=== PATIENT | female | born 1950 | race Caucasian/White ===

== ENCOUNTER 2017-02-25 19:24 | Inpatient (IN) | payer MEDICARE, BC ==
--- NOTE | 2017-02-25 20:56 | EDM.PDOC ---
ED HPI GENERAL MEDICAL PROBLEM - General Chief Complaint: Abdominal Pain Stated Complaint: ABDOMINAL PAIN Time Seen by Provider: 02/25/17 20:35 Source of Information: Reports: Patient History Limitations: Reports: No Limitations - History of Present Illness INITIAL COMMENTS - FREE TEXT/NARRATIVE: 66 yo female here with onset about supper time today of abdominal distention and pain. Had recent laparoscopic surgery for rectocoele repair at [facility]. Lives in [place]. Her primary care provider is in [place]. Had Candy-N-Y surgery per Dr. Diaz in the remote past. No fever. No nausea or vomiting. Sx's began when she tried to drink coffee and eat some bread when she got home from work. Was able to drink only about 1/2 cup of coffee and eat only a couple bites of lefse. Didn't have time for lunch today. Onset: Today Onset Date: 02/25/17 Onset Time: 17:30 Duration: Hour(s): Location: Reports: Abdomen, Generalized Quality: Reports: Dull Severity: Moderate Improves with: Reports: None Worsens with: Reports: Other (eating/drinking) Context: Reports: Other (recent laparoscopy, remote gastric by pass) Associated Symptoms: Reports: Other (deep breathing causes pain that radiates from the L lower lateral chest to the mid abdomen. ). Denies: Fever/Chills, Nausea/Vomiting, Shortness of Breath Treatments ADVANCE AGENT: Reports: Other (see below) (none) Abdominal Pain Score (Numeric/FACES): 6 - Related Data Allergies Allergy/AdvReac Type Severity Reaction Status Date / Time adhesive tape Allergy Rash Verified 02/25/17 20:40 amoxicillin [From Augmentin] Allergy Diarrhea Verified 02/25/17 20:40 ceftriaxone [From Rocephin] Allergy Syncope Verified 02/25/17 20:40 clavulanic acid Allergy Diarrhea Verified 02/25/17 20:40 [From Augmentin] levofloxacin [From Levaquin] Allergy Vomiting Verified 02/25/17 20:40 metoclopramide [From Reglan] Allergy Other Verified 02/25/17 20:40 Home Meds: Home Meds ALPRAZolam [Xanax] 0.5 mg PO BID PRN 02/25/17 [History] Acetylcysteine [Nac] 600 mg PO BID 02/25/17 [History] Albuterol [Ventolin HFA] 2 inh INH Q4H PRN 02/25/17 [History] Albuterol/Ipratropium [DuoNeb 3.0-0.5 MG/3 ML] 3 ml INH Q4H PRN 02/25/17 [ History] Calcitriol [Rocaltrol] 0.25 mcg PO DAILY 02/25/17 [History] Calcium Carbonate 260 mg PO TID 02/25/17 [History] Carboxymethyl/Gly/Poly80/Pf [Refresh Optive Advanced Drops] 1 drop EYELF Q4H [History] Cetirizine [ZyrTEC] 1 tab PO DAILY 02/25/17 [History] Cholecalciferol (Vitamin D3) [Vitamin D] 1,000 unit PO DAILY 02/25/17 [History] Erythromycin Base [Erythromycin 0.5% Ophth Oint] 1 applic OP BEDTIME 02/25/17 [ History] Estradiol [Estrace 0.01% Vaginal Crm] 2 gm VAG DAILY 02/25/17 [History] Fluconazole [Diflucan] 150 mg PO DAILY 02/25/17 [History] Fluticasone Propionate [Flonase] 1 - 2 spray INH DAILY 02/25/17 [History] Iron,Carbonyl/Ascorbic Acid [Vitron-C Tablet] 1 tab PO DAILY 02/25/17 [History] Lactobacillus Rhamnosus GG [Culturelle] 1 tab PO DAILY 02/25/17 [History] Loratadine [Claritin] 10 mg PO DAILY 02/25/17 [History] Mometasone/Formoterol [Dulera 200-5 MCG] 2 inh INH BID 02/25/17 [History] Nitrofurantoin Monohyd/M-Cryst [Macrobid 100 mg Capsule] 100 mg PO TID 02/25/17 [History] Phenazopyridine HCl [Pyridium] 200 mg PO TID PRN 02/25/17 [History] Polyethylene Glycol 3350 [MiraLAX] 17 gm PO BID 02/25/17 [History] Propranolol HCl [Inderal LA] 240 mg PO DAILY 02/25/17 [History] Rizatriptan Benzoate [Maxalt] 5 mg PO ASDIRECTED PRN 02/25/17 [History] Simvastatin [Zocor] 1 tab PO DAILY 02/25/17 [History] busPIRone [Buspar] 5 mg PO BID 02/25/17 [History] hydrOXYzine Pamoate [Vistaril] 100 mg PO BID PRN 02/25/17 [History] Past Medical History HEENT History: Reports: Impaired Vision, Otitis Media, Retinal Detachment Cardiovascular History: Reports: Hypertension Respiratory History: Reports: Asthma, Bronchitis, Recurrent Gastrointestinal History: Reports: Colon Polyp, Hemorrhoids Genitourinary History: Reports: Renal Calculus, Urinary Incontinence, UTI, Recurrent, Other (See Below) Other Genitourinary History: left kidney function at 40%, bladder surgery 1981 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: Musculoskeletal History: Reports: Osteoporosis Neurological History: Reports: Migraines Psychiatric History: Reports: Depression Hematologic History: Reports: B12 Deficiency - Past Surgical History HEENT Surgical History: Reports: Cataract Surgery Cardiovascular Surgical History: Reports: Other (See Below) Other Cardiovascular Surgeries/Procedures: britney cath september 2016 GI Surgical History: Reports: Bariatric Procedure, Colonoscopy, Hernia, Abdominal, Other (See Below) Other GI Surgeries/Procedures: RNY 2005, rectocele Female Surgical History: Reports: Breast Biopsy, Kidney stone extraction, Tubal Ligation Neurological Surgical History: Reports: Lumbar Spine Musculoskeletal Surgical History: Reports: Carpal Tunnel Social & Family History - Tobacco Use Smoking Status *Q: Never Smoker - Caffeine Use Caffeine Use: Reports: Coffee - Recreational Drug Use Recreational Drug Use: No ED ROS GENERAL - Review of Systems Review Of Systems: See Below Constitutional: Reports: No Symptoms HEENT: Reports: No Symptoms Respiratory: Reports: Other (deep breathing causes pain in abdomen to increase) Cardiovascular: Reports: No Symptoms Endocrine: Reports: No Symptoms GI/Abdominal: Reports: Abdominal Pain, Distension. Denies: Black Stool, Bloody Stool, Constipation, Diarrhea, Flatus, Hematemesis, Hematochezia, Melena, Mucous in Stool, Nausea, Stool Incontinence, Vomiting : Reports: No Symptoms Musculoskeletal: Reports: No Symptoms Skin: Reports: No Symptoms Neurological: Reports: No Symptoms Psychiatric: Reports: No Symptoms ED EXAM, GI/ABD - Physical Exam Exam: See Below Exam Limited By: No Limitations General Appearance: Alert, WD/WN, No Apparent Distress Eyes: Bilateral: Normal Appearance Ears: Normal External Exam, Normal Canal, Hearing Grossly Normal Nose: Normal Inspection, Normal Mucosa, No Blood Throat/Mouth: Normal Inspection, Normal Lips, Normal Oropharynx, Normal Voice, No Airway Compromise Head: Atraumatic, Normocephalic Neck: Normal Inspection Respiratory/Chest: No Respiratory Distress, Lungs Clear, Normal Breath Sounds, No Accessory Muscle Use Cardiovascular: Regular Rate, Rhythm, No Edema GI/Abdominal Exam: Soft, Distended (mild, no dullness with percussion.), Tender (LUQ and central abdomen.), Abnormal Bowel Sounds (slight increased BS). No: No Distention, Guarding, Rigid, Hernia Back Exam: Normal Inspection. No: CVA Tenderness (R), CVA Tenderness (L) Extremities: Normal Inspection, Normal Range of Motion, Non-Tender, No Pedal Edema Neurological: Alert, Oriented, CN II-XII Intact, Normal Cognition, No Motor/ Sensory Deficits Psychiatric: Normal Affect, Normal Mood Skin Exam: Warm, Dry, Intact, Normal Color, No Rash Lymphatic: No Adenopathy Course - Vital Signs Text/Narrative:: Had a small stool with little relief after Dulcolax supp PA Soap suds enema-good results, but still symptomatic Last Recorded V/S: Last Vital Signs Temp 36.1 C 02/26/17 00:39 Pulse 58 L 02/26/17 00:39 Resp 18 02/26/17 00:39 BP 190/96 H 02/26/17 00:39 Pulse Ox 97 02/26/17 00:39 - Orders/Labs/Meds Orders: Active Orders 24 hr Category Date Time Status Admission Status [Patient Status] [ADT] Routine ADT 02/26/17 00:34 Active Enema [RC] ASDIRECTED Care 02/25/17 22:20 Active Abdomen 2V AP Flat Upright [CR] Stat Exams 02/25/17 20:49 Taken Abdomen Pelvis w Cont [CT] Stat Exams 02/25/17 23:35 Taken HYDROmorphone [Dilaudid] Med 02/26/17 00:40 Once 0.5 mg IVPUSH ONETIME ONE Sodium Chloride 0.9% [Normal Saline] 1,000 ml Med 02/25/17 23:45 Active IV ASDIRECTED Medication Orders Sodium Chloride (Normal Saline) 1,000 mls @ 500 mls/hr IV ASDIRECTED PARMJIT Last Admin: 02/26/17 00:25 Dose: 500 mls/hr Labs: Laboratory Tests 02/25/17 02/25/17 Range/Units 21:02 21:02 WBC 6.4 (4.5-11.0) K/uL RBC 4.45 (3.30-5.50) M/uL Hgb 12.5 (12.0-15.0) g/dL Hct 39.8 (36.0-48.0) % MCV 89 (80-98) fL MCH 28 (27-31) pg MCHC 31 L (32-36) % Plt Count 241 (150-400) K/uL Sodium 144 (140-148) mmol/L Potassium 4.0 (3.6-5.2) mmol/L Chloride 109 H (100-108) mmol/L Carbon Dioxide 25 (21-32) mmol/L Anion Gap 14.0 (5.0-14.0) mmol/L BUN 15 (7-18) mg/dL Creatinine 0.8 (0.6-1.0) mg/dL Est Cr Clr Drug Dosing 55.45 mL/min Estimated GFR (MDRD) > 60 (>60) Glucose 92 (74-106) mg/dL Calcium 8.7 (8.5-10.1) mg/dL C-Reactive Protein 0.09 (0.0-0.3) mg/dL Meds: Medications Generic Name Dose Route Start Last Admin Trade Name Musa PRN Reason Stop Dose Admin Sodium Chloride 1,000 mls @ 500 mls/hr 02/25/17 23:45 02/26/17 00:25 Normal Saline IV 500 mls/hr ASDIRECTED PARMJIT Administration Discontinued Medications Generic Name Dose Route Start Last Admin Trade Name Musa PRN Reason Stop Dose Admin Bisacodyl 10 mg 02/25/17 21:11 02/25/17 21:26 Dulcolax RECTAL 02/25/17 21:12 10 mg ONETIME ONE Administration Sodium Chloride 73 mls @ 3.3 mls/sec 02/25/17 23:45 02/26/17 00:00 Normal Saline IV 02/25/17 23:46 3.3 mls/sec ASDIRECTED STA Administration Iopamidol 100 ml 02/25/17 23:45 02/26/17 00:00 Isovue-300 (61%) IV 02/25/17 23:46 100 ml . DIRECTED STA Administration Lactulose 20 gm 02/25/17 21:10 02/25/17 21:30 Chronulac PO 02/25/17 21:11 20 gm ONETIME ONE Administration Ondansetron HCl 4 mg 02/25/17 23:34 02/26/17 00:25 Zofran IVPUSH 02/25/17 23:35 4 mg ONETIME ONE Administration - Radiology Interpretation Free Text/Narrative:: Flat and upright abdominal X-rays-No air-fluid levels. Large amount of stool present. CT abd/pelvis-SBO with transition point in the mid upper abdomen. CT Results Date: 02/25/17 CT Results Time: 00:10 Departure - Departure Time of Disposition: 00:45 Disposition: Admitted As Inpatient 67 Condition: Fair Clinical Impression: Obstipation, SBO (small bowel obstruction) - Discharge Information Referrals: Gus De Leon MD [Primary Care Provider] - Forms: ED Department Discharge - My Orders Last 24 Hours: My Active Orders 02/25/17 20:49 Abdomen 2V AP Flat Upright [CR] Stat 02/25/17 22:20 Enema [RC] ASDIRECTED 02/25/17 23:35 Abdomen Pelvis w Cont [CT] Stat 02/25/17 23:45 Sodium Chloride 0.9% [Normal Saline] 1,000 ml IV ASDIRECTED 02/26/17 00:40 HYDROmorphone [Dilaudid] 0.5 mg IVPUSH ONETIME ONE - Assessment/Plan Last 24 Hours: My Active Orders 02/25/17 20:49 Abdomen 2V AP Flat Upright [CR] Stat 02/25/17 22:20 Enema [RC] ASDIRECTED 02/25/17 23:35 Abdomen Pelvis w Cont [CT] Stat 02/25/17 23:45 Sodium Chloride 0.9% [Normal Saline] 1,000 ml IV ASDIRECTED 02/26/17 00:40 HYDROmorphone [Dilaudid] 0.5 mg IVPUSH ONETIME ONE
[2017-02-25] MEDS ORDERED: Lactulose Soln 10 GM/15 ML 15 ML UD Cup PO ONE (21:10)
[2017-02-25] MEDS ORDERED: Bisacodyl 10 MG Supp RECTAL ONE (21:11)
[2017-02-25] MEDS ORDERED: Ondansetron 4 MG/2 ML SDV IVPUSH ONE (23:34)
[2017-02-25] MEDS ORDERED: Sodium Chloride 0.9% 1,000 ML IV SCH (23:45)
[2017-02-25] MEDS ORDERED: Iopamidol 612 MG/ML 100 ML Bottle IV STA (23:45)
[2017-02-26] MEDS ORDERED: Dextrose 5%-Lactated Ringers 1,000 ML IV SCH ×3 (00:34→15:15)
[2017-02-26] MEDS ORDERED: HYDROmorphone 0.5 MG/0.5 ML Syringe IVPUSH ONE (00:40)
[2017-02-26] MEDS ORDERED: HYDROmorphone/Normal Saline 15 MG/30 ML PCA IV PRN (00:44)
[2017-02-26] MEDS ORDERED: Naloxone 0.4 MG/ML SDV IV PRN (00:44)
[2017-02-26] MEDS ORDERED: Ondansetron 4 MG/2 ML SDV IVPUSH PRN ×2 (01:38→16:00)
[2017-02-26] MEDS ORDERED: Pneumococcal Polyvalent-23 Vaccine 0.5 ML SDV IM ONE ×2 (01:59→11:00)
[2017-02-26] MEDS ORDERED: HYDROXYZINE PAMOATE 100 MG PO PRN (07:06)
[2017-02-26] MEDS ORDERED: Albuterol/Ipratropium 3.0-0.5 MG/3 ML Neb Soln INH PRN ×2 (07:06→15:00)
[2017-02-26] MEDS ORDERED: Albuterol 8 GM Inhaler INH PRN (07:06)
[2017-02-26] MEDS ORDERED: PHENAZOPYRIDINE HCL 200 MG PO PRN (07:06)
[2017-02-26] MEDS ORDERED: RIZATRIPTAN BENZOATE 5 MG PO PRN (07:06)
[2017-02-26] MEDS ORDERED: ALPRAZolam 0.5 MG Tab PO PRN (07:06)
[2017-02-26] MEDS ORDERED: POLY80 EYELF SCH (07:15)
[2017-02-26] MEDS ORDERED: [UNRECOGNIZED DRUG - OTHER] EYELF SCH (07:15)
[2017-02-26] MEDS ORDERED: CARBOXYMETHYL EYELF SCH (07:15)
[2017-02-26] MEDS ORDERED: GLY EYELF SCH (07:15)
[2017-02-26] MEDS ORDERED: hydrOXYzine HCl 25 MG Tab PO PRN (07:33)
[2017-02-26] MEDS ORDERED: Phenazopyridine 95 MG Tab PO PRN (07:37)
[2017-02-26] MEDS ORDERED: Rizatriptan 10 MG Tab.DIS PO PRN (07:40)
[2017-02-26] MEDS ORDERED: LORazepam 2 MG/ML MDV IVPUSH PRN (07:56)
[2017-02-26] MEDS ORDERED: Formoterol/Mometasone 200-5 MCG 8.8 GM Inhaler IH SCH (08:00)
[2017-02-26] MEDS ORDERED: Scopolamine 1.5 MG Transdermal Patch TOP SCH (08:00)
[2017-02-26] MEDS ORDERED: SIMVASTATIN PO SCH (09:00)
[2017-02-26] MEDS ORDERED: PROPRANOLOL HCL 120 MG PO SCH (09:00)
[2017-02-26] MEDS ORDERED: IRON CARBONYL PO SCH (09:00)
[2017-02-26] MEDS ORDERED: Non-Formulary Medication 1 Each (Cholecalciferol (Vitamin D3) [Vitamin D] 1,000 UNIT) PO SCH (09:00)
[2017-02-26] MEDS ORDERED: ACETYLCYSTEINE 600 MG PO SCH (09:00)
[2017-02-26] MEDS ORDERED: Fluticasone Propionate Nasal Spray 16 GM Bottle NASBOTH SCH (09:00)
[2017-02-26] MEDS ORDERED: Cetirizine 10 MG Tab PO SCH (09:00)
[2017-02-26] MEDS ORDERED: ASCORBIC ACID PO SCH (09:00)
[2017-02-26] MEDS: Hypromellose 0.4% Ophth Soln 15 ML Bottle EYELF SCH ×2 (09:12→12:29)
[2017-02-26] MEDS: Cholecalciferol (Vitamin D3) 1,000 Unit Tab PO SCH ×2 (09:15→09:38)
[2017-02-26] MEDS: Loratadine 10 MG Tab PO SCH ×2 (09:15→09:37)
[2017-02-26] MEDS: Ondansetron 4 MG/2 ML SDV IVPUSH SCH ×2 (09:15→13:33)
[2017-02-26] MEDS: Ferrous Fumarate/Vitamin C 200-125 MG Tab PO SCH ×2 (09:17→09:38)
[2017-02-26] MEDS: Nitrofurantoin Monohydrate/Macrocrystalline 100 MG Cap PO SCH ×3 (09:25→15:22)
[2017-02-26] MEDS: Lactobacillus Rhamnosus GG (Probiotic) Cap PO SCH ×2 (09:25→09:37)
[2017-02-26] MEDS: busPIRone 5 MG Tab PO SCH ×2 (09:25→09:37)
[2017-02-26] MEDS: Calcitriol 0.25 MCG Cap PO SCH ×2 (09:25→09:38)
[2017-02-26] MEDS: Propranolol 60 MG Cap.ER PO SCH ×2 (09:26→09:38)
[2017-02-26] MEDS: Polyethylene Glycol 3350 Powder 17 GM Packet PO SCH ×2 (09:27→09:38)
[2017-02-26] MEDS: Fluconazole 150 MG Tab PO SCH ×2 (09:28→09:40)
--- NOTE | 2017-02-26 09:38 | HP ---
HISTORY OF PRESENT ILLNESS: Tessy was admitted yesterday from the ER. 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 She had a rectocele repaired at [facility] on January 27, 2017. Bowel movements have been regular. Prior to eating around 4:30 p.m. yesterday afternoon, she did not have any lunch and stated that she did not have time to eat, but she did drink fluids. 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 She states that she continues to be quite nauseated. No aggravating factors. Denies any fever, chills, night sweats, or fatigue. ALLERGIES: ADHESIVE TAPE, AMOXICILLIN, ROCEPHIN, AUGMENTIN, LEVAQUIN, AND REGLAN. HOME MEDICATIONS: See EMR. PAST MEDICAL HISTORY: Wears corrective lenses for impaired vision, has had a history of retinal detachment. Cardiovascular - Hypertension. Respiratory - Recurrent asthma, history of bronchitis. GI - Has had Candy-en-Y gastric bypass surgery, history of colon polyp, hemorrhoids, and rectal prolapse. - History of renal calculus, urinary incontinence, UTI, left kidney function 40%. Musculoskeletal - History of joint pain, history of osteoarthritis. Neurological - Migraine headaches. Psychiatric - History of depression. PAST SURGICAL HISTORY: Cataract surgery, Candy-en-Y gastric bypass surgery approximately in 2004, colonoscopy, hernia repair, had a rectocele most recent 01/27/2017, breast biopsy, kidney stone extraction, tubal ligation, lumbar spine surgery, and carpal tunnel. 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 Does not smoke. Drinks coffee 1 to 2 cups a day. No alcohol or carbonation. Takes all her bariatric vitamins. Most days eats 3 meals a day, has no formal exercise program. REVIEW OF SYSTEMS: CONSTITUTIONAL: Denies any fever, chills, night sweats, or fatigue. Weight has been stable. HEENT: Negative. Wears corrective lenses. RESPIRATORY: Unable to take a deep breath because it causes abdominal pain. CARDIOVASCULAR: No chest pain, shortness of breath, fast or irregular heart beat. ENDOCRINE: Negative. GI: As above. : Negative for UTI signs and symptoms. MUSCULOSKELETAL: Chronic joint pain and stiffness. SKIN: Without rash or changes in moles or birthmarks. NEUROLOGIC: No headaches, dizziness, loss of coordination. PSYCHIATRIC: Negative. OBJECTIVE: GENERAL: Tessy Mathis is a 66-year-old female. VITAL SIGNS: Height is 5 feet 2 inches. Weight is 159 pounds. BMI is 29. TPR is 96.5, 58, and 16, and blood pressure 163/81. HEENT: Negative. NECK: Supple. HEART: Regular rate and rhythm. LUNGS: Clear. ABDOMEN: Soft, minimally distended. There are well-healed new trocar sites in her lower abdomen from her recent surgery. Abdomen right now is soft and nontender. She is extremely nauseated. EXTREMITIES: Without peripheral edema. NEUROLOGIC: Intact. SKIN: Without rash. PSYCHIATRIC: Mood and affect appropriate. ASSESSMENT: 1. Small bowel obstruction with transition point in the mid upper abdomen via CT scan on 02/26/2017. 2. Status post Candy-en-Y gastric bypass surgery. 3. Unspecified surgical malabsorption. 4. B12 deficiency. 5. Status post repair of rectal prolapse, 01/27/2017. 6. Osteoporosis, migraine headaches, hyperlipidemia and seasonal allergies. PLAN: 1. Sips of water. 2. Check vitamin levels, folate, ferritin, vitamin B12, and vitamin D25. 3. D5LR at 125 mL per hour. 4. Abdominal flat and upright x-rays series x3 at 4:00 a.m. 5. Scopolamine patch, replace every 72 hours. 6. Zofran 4 mg IV q.4 hours scheduled. 7. Ativan 0.5 mg IV q.4 hours p.r.n. nausea. 8. Restart appropriate home medications. 9. Diet: Sips of water only. 10.N.p.o. after midnight. 11.We will evaluate p.r.n. or in a.m. Lesia Young PA-C /[id number]
--- NOTE | 2017-02-26 09:39 | CR ---
Abdomen 2V AP Flat Upright HISTORY: Pain COMPARISON: 02/25/2017 CT scan. Plain films 07/28/2011. FINDINGS: Postoperative surgical clips in the upper left abdomen from prior gastric bypass. There is moderate stool throughout the entire colon no obstruction. Multiple vascular calcifications. Impression: Fairly extensive stool throughout the colon no evidence for obstruction.
[2017-02-26] MEDS ORDERED: fentaNYL 250 MCG/5 ML SDV ONE (10:55)
[2017-02-26] MEDS ORDERED: Glycopyrrolate 0.2 MG/ML 5 ML MDV ONE (10:55)
[2017-02-26] MEDS ORDERED: Rocuronium 50 MG/5 ML Vial ONE (10:55)
[2017-02-26] MEDS ORDERED: Neostigmine Methylsulfate 1 MG/ML 5 ML Syringe ONE (10:55)
[2017-02-26] MEDS ORDERED: Succinylcholine 200 MG/10 ML MDV ONE (10:55)
[2017-02-26] MEDS ORDERED: Dexamethasone 4 MG/ML SDV ONE (10:55)
[2017-02-26] MEDS ORDERED: Propofol 200 MG/20 ML SDV ONE (10:55)
[2017-02-26] MEDS ORDERED: Ondansetron 4 MG/2 ML SDV ONE (10:55)
[2017-02-26] MEDS ORDERED: Meropenem 500 MG SDV ONE (10:56)
[2017-02-26] MEDS ORDERED: Meropenem 500 MG in Sodium Chloride 0.9% 50 ML IV ONE (11:00)
[2017-02-26] MEDS ORDERED: Ketamine 500 MG/5 ML MDV IV ONE (11:45)
[2017-02-26] MEDS ORDERED: Ropivacaine 37 ML, Dexamethasone 8 MG, EPINEPHrine 0.4 MG, Sodium Chloride 0.9% 40.6 ML NERVRT SCH ×4 (12:00)
[2017-02-26] MEDS ORDERED: Lidocaine 2% 100 MG/5 ML Syringe IVPUSH ONE (12:00)
[2017-02-26] MEDS ORDERED: fentaNYL 100 MCG/2 ML SDV ONE (12:44)
[2017-02-26] MEDS ORDERED: Sugammadex Sodium 200 MG/2 ML VIAL ONE (13:09)
[2017-02-26] MEDS ORDERED: Naloxone 0.4 MG/ML SDV ONE (13:13)
[2017-02-26] MEDS ORDERED: Pantoprazole 40 MG Vial IVPUSH SCH (16:00)
[2017-02-26] MEDS ORDERED: hydrOXYzine HCl 100 MG/2 ML SDV IM PRN (16:00)
[2017-02-26] MEDS ORDERED: MVI, Adult with Vitamin K 10 ML, Thiamine 200 MG, Chromium/Copper/Mang/Selen/Zn 1 ML in... IV SCH ×4 (16:00)
[2017-02-26] MEDS ORDERED: diphenhydrAMINE 50 MG/ML SDV IVPUSH PRN (16:00)
[2017-02-26] MEDS ORDERED: SCOPOLAMINE PATCH CHECK TOP SCH (16:00)
[2017-02-26] MEDS ORDERED: Labetalol 20 MG/4 ML Syringe IVPUSH PRN (16:00)
[2017-02-26] MEDS: Acetaminophen Soln 650 MG/20.3 ML UD Cup PO SCH ×2 (16:18→21:48)
[2017-02-26] MEDS: Lidocaine 0.4%/D5W 2 GM/500 ML BAG IV SCH (16:22)
[2017-02-26] MEDS: VERIFY SCOP PATCH TOP SCH (16:22)
[2017-02-26] MEDS: Heparin Sodium 5,000 Units/ML Vial SUBCUT SCH (18:31)
[2017-02-26] MEDS: Gabapentin 250 MG/5 ML Solution ML 470 ML Bottle PO SCH (20:28)
[2017-02-26] MEDS: Meropenem 500 MG in Sodium Chloride 0.9% 50 ML IV SCH (20:28)
[2017-02-26] MEDS: Albuterol/Ipratropium 3.0-0.5 MG/3 ML Neb Soln INH SCH (20:35)
[2017-02-26] MEDS ORDERED: Erythromycin Base 0.5% Ophth Oint 1 GM Tube EYERT SCH (21:00)
[2017-02-26] MEDS ORDERED: Simvastatin 20 MG Tab PO SCH (21:00)
[2017-02-26] MEDS ORDERED: Erythromycin Base 0.5% Ophth Oint 3.5 GM Tube EYERT SCH (21:00)
[2017-02-27] MEDS: Meropenem 500 MG in Sodium Chloride 0.9% 50 ML IV SCH ×3 (02:00→14:27)
[2017-02-27] MEDS ORDERED: Iohexol 647 MG/ML 50 ML SDV PO SCH (03:30)
[2017-02-27] MEDS: Acetaminophen Soln 650 MG/20.3 ML UD Cup PO SCH ×4 (04:12→22:14)
[2017-02-27] MEDS: Heparin Sodium 5,000 Units/ML Vial SUBCUT SCH ×2 (05:08→17:20)
[2017-02-27] MEDS: Lidocaine 0.4%/D5W 2 GM/500 ML BAG IV SCH (05:16)
[2017-02-27] MEDS: Albuterol/Ipratropium 3.0-0.5 MG/3 ML Neb Soln INH SCH ×4 (07:47→20:32)
[2017-02-27] MEDS: Celecoxib 200 MG Cap PO SCH (08:52)
[2017-02-27] MEDS: Gabapentin 250 MG/5 ML Solution ML 470 ML Bottle PO SCH ×3 (08:52→20:24)
[2017-02-27] MEDS ORDERED: ESTRADIOL 0.01% VAG SCH (09:00)
[2017-02-27] MEDS ORDERED: Dextrose 5%-Lactated Ringers 1,000 ML IV SCH ×2 (09:30→14:45)
[2017-02-27] MEDS: Lansoprazole 30 MG Orally Disintegrating Tab.CR PO SCH (10:33)
[2017-02-27] MEDS: Cetirizine 10 MG Tab PO SCH (10:33)
[2017-02-27] MEDS: Propranolol 80 MG Cap.ER PO SCH (10:33)
[2017-02-27] MEDS: busPIRone 5 MG Tab PO SCH ×2 (10:33→20:24)
[2017-02-27] MEDS: Bisacodyl 5 MG Tab PO SCH ×2 (10:33→20:24)
[2017-02-27] MEDS: Fluticasone Propionate Nasal Spray 16 GM Bottle NASBOTH SCH (10:34)
[2017-02-27] MEDS: Polyethylene Glycol 3350 Powder 17 GM Packet PO SCH ×2 (10:34→20:25)
[2017-02-27] MEDS: Rizatriptan 10 MG Tab.DIS PO PRN (10:36)
[2017-02-27] MEDS: VERIFY SCOP PATCH TOP SCH (11:10)
[2017-02-27] MEDS ORDERED: Pneumococcal Polyvalent-23 Vaccine 0.5 ML SDV IM ONE (14:15)
[2017-02-27] MEDS ORDERED: Furosemide 40 MG/4 ML VIAL IVPUSH ONE (15:00)
[2017-02-27] MEDS ORDERED: MVI, Adult with Vitamin K 10 ML, Thiamine 200 MG, Chromium/Copper/Mang/Selen/Zn 1 ML in... IV SCH ×4 (16:00)
[2017-02-28] MEDS: Acetaminophen Soln 650 MG/20.3 ML UD Cup PO SCH ×4 (03:03→22:07)
[2017-02-28] MEDS: Heparin Sodium 5,000 Units/ML Vial SUBCUT SCH ×2 (05:09→17:32)
[2017-02-28] MEDS ORDERED: Furosemide 40 MG/4 ML VIAL IVPUSH ONE (06:57)
[2017-02-28] MEDS ORDERED: Furosemide 20 MG/2 ML VIAL IVPUSH ONE (07:15)
[2017-02-28] MEDS: Albuterol/Ipratropium 3.0-0.5 MG/3 ML Neb Soln INH SCH ×4 (07:30→20:41)
[2017-02-28] MEDS: Rizatriptan 10 MG Tab.DIS PO PRN (07:39)
[2017-02-28] MEDS: Lansoprazole 30 MG Orally Disintegrating Tab.CR PO SCH (07:41)
[2017-02-28] MEDS: Celecoxib 200 MG Cap PO SCH (07:51)
--- NOTE | 2017-02-28 08:29 | PN ---
DATE OF SERVICE: 02/28/2017 SUBJECTIVE: Tessy is postop day 2. She has been having bowel movements. She did have some fluid overload, so was given some Lasix yesterday. Vital signs have been stable. Activity is good. REVIEW OF SYSTEMS: Remainder of review of systems is negative for any pertinent positives and negatives. OBJECTIVE: GENERAL: Tessy Matihs is a pleasant 66-year-old female. VITAL SIGNS: TPR is 99.4, 65, 16, blood pressure 138/62. HEENT: Negative. NECK: Supple. HEART: Regular rate and rhythm. LUNGS: Clear. ABDOMEN: Dressings dry and intact. Abdominal binder is on. EXTREMITIES: Without peripheral edema. ASSESSMENT: Exploratory laparotomy with revision of the jejunostomy component of the Candy- en-Y gastric bypass surgery, repair of small bowel volvulus, tube decompression of small bowel, and placement of Interceed mesh for small bowel volvulus between the loops of the small bowel adhesions, and chronic stricture at the jejunostomy junction. Date of surgery 02/26/2017. PLAN: 1. Dressings off, leaving Aquacel. 2. May shower. 3. Saline lock IV. 4. Step 4 gastric bypass diet. 5. Lasix 20 mg IV this a.m. 6. Check CBC, CMP, magnesium, phosphorus in a.m. 7. Good pulmonary toilet. 8. We will evaluate p.r.n. or in a.m. Lesia Young PA-C /[id number]
--- NOTE | 2017-02-28 08:59 | CR ---
UGI w KUB HISTORY: Revision of Candy-en-Y. COMPARISON: Plain films 02/25/2017. CT scan seen in the. FINDINGS: Prior gastric bypass. Contrast reaches the gastric remnant and then the small bowel anastom osis. No dilated loops of small bowel. No extravasation seen. Tiny amount of postoperative air undern eath the right and left hemidiaphragm.
[2017-02-28] MEDS ORDERED: Cyanocobalamin (Vitamin B12) 1,000 MCG/ML SDV IM ONE (09:00)
[2017-02-28] MEDS: Polyethylene Glycol 3350 Powder 17 GM Packet PO SCH (10:29)
[2017-02-28] MEDS: Bisacodyl 5 MG Tab PO SCH ×2 (10:36→20:38)
[2017-02-28] MEDS: busPIRone 5 MG Tab PO SCH ×2 (10:37→20:38)
[2017-02-28] MEDS: Propranolol 80 MG Cap.ER PO SCH (10:37)
[2017-02-28] MEDS: Fluticasone Propionate Nasal Spray 16 GM Bottle NASBOTH SCH (10:37)
[2017-02-28] MEDS: Cetirizine 10 MG Tab PO SCH (10:38)
[2017-02-28] MEDS: Gabapentin 250 MG/5 ML Solution ML 470 ML Bottle PO SCH ×3 (11:00→20:25)
[2017-02-28] MEDS: Hypromellose 0.4% Ophth Soln 15 ML Bottle EYELF SCH ×4 (12:21→22:08)
[2017-02-28] MEDS ORDERED: Polyethylene Glycol 3350 Powder 119 GM Bottle PO SCH (21:00)
[2017-03-01] MEDS: Acetaminophen Soln 650 MG/20.3 ML UD Cup PO SCH ×4 (03:10→21:25)
[2017-03-01] MEDS: Heparin Sodium 5,000 Units/ML Vial SUBCUT SCH ×2 (06:08→17:23)
[2017-03-01] MEDS: Rizatriptan 10 MG Tab.DIS PO PRN (07:07)
[2017-03-01] MEDS: Albuterol/Ipratropium 3.0-0.5 MG/3 ML Neb Soln INH SCH ×4 (07:22→20:07)
[2017-03-01] MEDS: Hypromellose 0.4% Ophth Soln 15 ML Bottle EYELF SCH ×6 (07:26→22:11)
[2017-03-01] MEDS: Lansoprazole 30 MG Orally Disintegrating Tab.CR PO SCH (07:28)
[2017-03-01] MEDS: Celecoxib 200 MG Cap PO SCH (08:28)
[2017-03-01] MEDS: busPIRone 5 MG Tab PO SCH ×2 (08:48→20:07)
[2017-03-01] MEDS: Fluticasone Propionate Nasal Spray 16 GM Bottle NASBOTH SCH (08:48)
[2017-03-01] MEDS: Propranolol 80 MG Cap.ER PO SCH (08:49)
[2017-03-01] MEDS: Cetirizine 10 MG Tab PO SCH (08:51)
[2017-03-01] MEDS: Gabapentin 250 MG/5 ML Solution ML 470 ML Bottle PO SCH ×3 (08:57→20:07)
[2017-03-01] MEDS: Potassium Chloride 20 MEQ Tab.ER PO SCH ×3 (12:08→21:25)
[2017-03-01] MEDS: Sodium Chloride 0.9% 10 ML Syringe IV PRN (12:08)
[2017-03-02] MEDS ORDERED: Calcium Carbonate 500 MG Tab.Chew PO PRN (02:34)
[2017-03-02] MEDS: Acetaminophen Soln 650 MG/20.3 ML UD Cup PO SCH ×4 (03:06→22:00)
[2017-03-02] MEDS: Heparin Sodium 5,000 Units/ML Vial SUBCUT SCH ×2 (05:38→18:28)
[2017-03-02] MEDS: Albuterol/Ipratropium 3.0-0.5 MG/3 ML Neb Soln INH SCH ×4 (07:11→21:55)
[2017-03-02] MEDS: Lansoprazole 30 MG Orally Disintegrating Tab.CR PO SCH (07:33)
[2017-03-02] MEDS: Hypromellose 0.4% Ophth Soln 15 ML Bottle EYELF SCH ×5 (07:33→22:00)
[2017-03-02] MEDS ORDERED: Ondansetron 4 MG Tab.DIS PO PRN (07:59)
[2017-03-02] MEDS: Celecoxib 200 MG Cap PO SCH (08:44)
[2017-03-02] MEDS: Fluticasone Propionate Nasal Spray 16 GM Bottle NASBOTH SCH (08:44)
[2017-03-02] MEDS: Propranolol 80 MG Cap.ER PO SCH (08:45)
[2017-03-02] MEDS: busPIRone 5 MG Tab PO SCH ×2 (08:45→21:59)
[2017-03-02] MEDS: Cetirizine 10 MG Tab PO SCH (08:46)
[2017-03-02] MEDS: Gabapentin 250 MG/5 ML Solution ML 470 ML Bottle PO SCH ×3 (08:51→21:48)
[2017-03-02] MEDS ORDERED: Cetirizine 10 MG Tab PO SCH (09:00)
[2017-03-02] MEDS: Sodium Chloride 0.9% 10 ML Syringe IV PRN (11:09)
--- NOTE | 2017-03-02 13:17 | PN ---
DATE OF SERVICE: 02/27/2017 The patient is postop day #1 from a release of the small bowel obstruction along with revision of her jejunojejunostomy component of the Candy-en-Y gastric bypass. Clinically, she has done well overnight. Urine output has been satisfactory. We will move up to a step- 3 diet today. Upper GI x-ray looks good and we will restart her pertinent oral medications. She is severely constipated and we will begin 85 g of MiraLAX b.i.d. along with senna plus and Dulcolax tablets, and otherwise maximize activity and work with pulmonary toilet. Desouza catheter will be coming out today. Aston Diaz MD /[id number]
--- NOTE | 2017-03-02 14:08 | PN ---
DATE OF SERVICE: 03/01/2017 The patient has been afebrile with stable vital signs. Moving bowels quite often. We will move back down on the Dulcolax and MiraLAX, and continue the senna. She does feel comfortable going home with frequency of the bowel movements and problems were controlled most likely will be ready for discharge home tomorrow. Aston Diaz MD /[id number]
[2017-03-02] MEDS: ALPRAZolam 0.5 MG Tab PO PRN ×2 (15:31→21:55)
[2017-03-03] MEDS: Acetaminophen Soln 650 MG/20.3 ML UD Cup PO SCH ×2 (04:07→09:26)
[2017-03-03] MEDS: Heparin Sodium 5,000 Units/ML Vial SUBCUT SCH (05:53)
[2017-03-03] MEDS: Albuterol/Ipratropium 3.0-0.5 MG/3 ML Neb Soln INH SCH (07:29)
[2017-03-03] MEDS ORDERED: Pantoprazole 40 MG Delayed-Release Granules 1 Packet PO SCH (07:30)
[2017-03-03] MEDS: Hypromellose 0.4% Ophth Soln 15 ML Bottle EYELF SCH (08:21)
[2017-03-03] MEDS: Fluticasone Propionate Nasal Spray 16 GM Bottle NASBOTH SCH (08:23)
[2017-03-03] MEDS: Celecoxib 200 MG Cap PO SCH (08:23)
[2017-03-03] MEDS: Propranolol 80 MG Cap.ER PO SCH (08:23)
[2017-03-03] MEDS: busPIRone 5 MG Tab PO SCH (08:23)
[2017-03-03] MEDS: Cetirizine 10 MG Tab PO SCH (08:24)
[2017-03-03] MEDS: Gabapentin 250 MG/5 ML Solution ML 470 ML Bottle PO SCH (08:27)
--- NOTE | 2017-03-03 14:27 | OR ---
DATE OF PROCEDURE: 02/26/2017 PREOPERATIVE DIAGNOSES: 1. Small bowel volvulus between loops of bowel adherent by adhesions. 2. 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 OPERATIVE PROCEDURES: Exploratory laparotomy with: 1. Revision of jejunojejunostomy component of Candy-en-Y gastric bypass (92571). 2. Reduction of small bowel volvulus (93594). 3. Tube decompression of small bowel (01598). 4. Placement of Interceed mesh to limit recurrent adhesion formation (34317). ANESTHESIA: General. INDICATION FOR PROCEDURE: This is a 66-year-old female admitted through the emergency room with a previous history of Candy-en-Y gastric bypass. On CT scan, the patient appeared to have a small bowel volvulus present. Initially, she was fairly comfortable, but this became worse over time, and the patient is now complaining quite a bit in the way of discomfort and increased distention. So, the plan will be to proceed with an exploratory laparotomy with reduction of volvulus with bowel resection as needed. Potential risks of procedure including bleeding, infection, leaks from various GI tract closures, problems with bowel obstruction recurring were all reviewed, and the patient wishes to proceed. Additionally, if the jejunojejunostomy needs to be revised, we would hook things back up in a manner such that she will likely lose some additional weight. She also has problems with chronic constipation and this may be helpful in that regard as well. The potential risks of shortening of the common limb being primarily nutritional as well as frequent loose bowel movements, potentially requiring additional revision for correction were likewise gone over, and the patient wishes to proceed. DETAILS OF PROCEDURE: The patient was taken to the operating room and placed in a supine position. After general endotracheal anesthesia was induced, a Desouza catheter was inserted and the abdomen was prepped and draped. Transversus abdominis plane blocks were then placed bilaterally in the subcostal location using continuous ultrasound guidance with the usual solution. An upper midline incision was then made and carried down through the skin and subcutaneous tissue and through the fascia. The patient was noted to have a strikingly dilated biliopancreatic limb. This was mobilized upward. The patient was noted to have a volvulus involving the jejunojejunostomy rotating from the left to the right. This volvulus was then decompressed. The patient was noted to have some degree of mesenteric defect as well as adhesions contributing to the fixation of the jejunojejunostomy. At this point, a small opening was made in the biliopancreatic limb where the [place] sump tube was placed. A large volume of air and fluid was then evacuated. This also decompressed the gastric and duodenal segments as well, as the tube had been manipulated proximal to the ligament of Treitz. With that decompression completed, the tube was withdrawn and that opening was closed off with a LYN keller load and reinforced with a 3-0 Vicryl seromuscular stitch. At this point, the patient was noted to have what appeared to be a fixed stricture at the point where the Candy limb entered the jejunojejunostomy. This was then divided at that level. The patient was noted to have a Candy limb of 130 cm. We then decided to place a common limb of about 200 cm. The ileocecal valve was identified and small bowel traced out 200 cm proximal to that point. At that level, the [id number] enteroenterostomy was accomplished with the internal firing of the LYN keller load followed by purple load to close off the area. The mesenteric defect was then approximated with some 2-0 silk stitch. At this point, no further problems were noted. The patient had little in the way of omentum for mobilization and an Interceed mesh was then placed along the pelvic sidewalls and up against the abdominal wall underneath the incision, then overlying the anastomosis to limit adhesion formation by displacing the bowel from those surfaces. The midline fascia was then approximated with a #2 Vicryl stitch, and the subcutaneous tissue drained with a 10-[place]izen [place] round Shen-Todd drain brought through a small stab wound inferior to the incision. The subcutaneous tissue was then closed with 2 layers of 3-0 Vicryl stitch and the skin with nicholas. Dressing was applied. The patient was taken to the recovery room in a satisfactory condition. There were no evident complications. Aston Diaz MD /[id number]
--- NOTE | 2017-03-03 14:30 | PN ---
DATE OF SERVICE: 03/02/2017 The patient has been afebrile with stable vital signs. Her bowels are slowing down somewhat. She did have some nausea and had an episode of emesis last night. Given this, I think we will hold her discharge today, make sure nothing is cropping up in that area. Her IVs will be coming out and we will give her Zofran p.r.n. orally. She also wishes to have her port flushed which we will do today with heparinized saline. She will likely be ready for discharge home tomorrow. Aston Diaz MD /[id number]
--- NOTE | 2017-03-04 07:35 | DISCH ---
ADMISSION DIAGNOSES: Small bowel obstruction; SP Candy-en-Y gastric bypass surgery; unspecified surgical malabsorption; B12 deficiency; hypertension; recurrent asthma renal calculus; urinary incontinence; joint pain; osteoarthritis; migraine headaches; and depression. 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 HISTORY: Tessy is a 66-year-old female admitted through the emergency room with a previous history of Candy-en-Y gastric bypass surgery. After preoperative evaluation and discussion of possible risks and possible complications, she wished to proceed with surgical procedure. HOSPITAL COURSE: Tessy had her surgery on 02/26/2017. She had no operative complications. On postop day #1, her upper GI was normal. She was started on her pertinent home medication and she had bowel stimulation. On 02/28/2017, she was started on a step 4 gastric bypass diet. She was given Lasix. On 03/01, she was afebrile, she was having bowel movements frequently. On 03/02, she was afebrile, vital signs were stable, her bowel movements were slowing down, and she had her port flushed with heparinized saline. On 03/03/2017, vital signs were stable, pain was well managed, activity was good, oral intake adequate, and she was able to be discharged to home. PHYSICAL EXAMINATION: GENERAL: Tessy Mathis is a 66-year-old female. VITAL SIGNS: Height is 5 feet 1.81 inches. Weight is 159 pounds. TPR is 96.4, 58, 17, blood pressure 134/77. HEENT: Negative. NECK: Supple. HEART: Regular rate and rhythm. LUNGS: Clear. ABDOMEN: In nicholas, look good. Midline MAGALIE drain is draining small amounts of pink serosanguineous drainage. EXTREMITIES: Without peripheral edema. DISPOSITION: Discharge to home. CONDITION: Stable and improving. FOLLOWUP APPOINTMENT: With Lesia Young PA-C, on 03/07/2017 at 10:00 a.m. HOME MEDICATIONS: Celebrex 200 mg p.o. daily, #14; Senna Plus 2 tabs p.o. b.i.d., #100; Zyrtec 10 mg daily; Zocor 10 mg daily; BuSpar 5 mg p.o. b.i.d.; calcium carbonate 260 mg t.i.d.; calcitriol 0.25 mg p.o. daily; Estrace 0.01% vaginal cream, use as directed; Xanax 0.5 p.o. b.i.d. p.r.n. anxiety; Diflucan 150 mg p.o. daily; Culturelle one tablet p.o. daily; Vitron-C one tablet daily; DuoNeb 3 mL inhaled every 4 hours p.r.n.; Pyridium 200 mg p.o. t.i.d. p.r.n.; Macrobid 100 mg p.o. t.i.d.; Refresh Optive Advanced drops one drop eye lid every 4 hours; propranolol LA 240 mg p.o. daily; Ventolin inhaler 2 puffs every 4 hours p.r.n.; Dulera 200/5 micromilligrams 2 puffs inhaled b.i.d.; Maxalt 5 mg p.o. as directed p.r.n.; Claritin 10 mg p.o. daily; Flonase 1-2 sprays in each nostril daily; vitamin D 3000 international units daily; MiraLAX 17 g p.o. b.i.d.; Vistaril 100 mg p.o. b.i.d.; erythromycin 0.5% ophthalmic ointment apply at bedtime. DISCHARGE DIET: Step-4 gastric bypass diet. Drink 8 to 10 glasses of water a day. ACTIVITY: No lifting greater than 10 pounds for 6 weeks. Other activity, walk 6 times daily, distance and time as tolerated. Driving, do not drive on pain medication. Shower/bathing, may shower. Notify provider if any fever, increased pain, nausea, or vomiting. Wound incision care, keep site clean and dry. Wear abdominal binder for 6 weeks and then as tolerated. SPECIAL INSTRUCTIONS: 1. Use incentive spirometer 10 times every hour while awake for 1 week. 2. Empty and measure MAGALIE drain 4 times a day and bring results of drainage to clinic appointment.
== END 2017-03-03 09:40 | disposition home or self-care (01) | DRG 330 ==
LOC: JP.ED 19:24 → JP.2SS 02-26 00:34
PROVIDERS: ADMIT Surgery; ATTEND Surgery
PROC: 0DSA0ZZ Reposition Jejunum, Open Approach (ICD-10-PCS; principal; 2017-02-26)
PROC: 0DBA0ZZ Excision of Jejunum, Open Approach (ICD-10-PCS; 2017-02-26)
PROC: 0D980ZZ Drainage of Small Intestine, Open Approach (ICD-10-PCS; 2017-02-26)
PROC: 3E0M05Z Introduction of Adhesion Barrier into Peritoneal Cavity, Open Approach (ICD-10-PCS; 2017-02-26)
PROC: 3E0T3BZ Introduction of Anesthetic Agent into Peripheral Nerves and Plexi, Percutaneous Approach (ICD-10-PCS; 2017-02-26)
DX: K56.2 Volvulus (principal); K91.2 Postsurgical malabsorption, not elsewhere classified; I10 Essential (primary) hypertension; R10.9 Unspecified abdominal pain; R14.0 Abdominal distension (gaseous); J45.909 Unspecified asthma, uncomplicated; E78.5 Hyperlipidemia, unspecified; K59.09 Other constipation; E53.8 Deficiency of other specified B group vitamins; F32.9 Major depressive disorder, single episode, unspecified; Z98.84 Bariatric surgery status; Z98.0 Intestinal bypass and anastomosis status; H54.7 Unspecified visual loss; Z87.440 Personal history of urinary (tract) infections; Z88.1 Allergy status to other antibiotic agents; Z88.8 Allergy status to other drugs, medicaments and biological substances; Z91.048 Other nonmedicinal substance allergy status; K56.50 Intestinal adhesions [bands], unspecified as to partial versus complete obstruction; R32 Unspecified urinary incontinence
CPT/HCPCS: 36415; 74020 ×2; 74177; 80048; 85027; 86140; 96374; 99285; A9270 ×2; J2405; J7030; J7040; Q9967; 74241; 74241-26; 80053; 82306; 82607; 82728; 82746; 83735; 83880; 84100; 84425; 87493; 88307; 94640; 94664; 94667; 94762; C1751; C9113; C9399; J0171; J0330; J1100; J1170; J1200; J1642; J1644; J1940; J2001; J2185; J2310; J2704; J2710; J2795; J3010; J3410; J3411; J3420; J7042; J7050; J7620

== ENCOUNTER 2017-03-10 13:00 | Inpatient (IN) | payer MEDICARE, BC ==
[2017-03-10] MEDS ORDERED: Ondansetron 4 MG Tab.DIS PO PRN (13:35)
[2017-03-10] MEDS ORDERED: Ondansetron 4 MG/2 ML SDV IV PRN (13:36)
[2017-03-10] MEDS ORDERED: Acetaminophen 650 MG Supp RECTAL PRN (13:36)
[2017-03-10] MEDS ORDERED: Celecoxib 200 MG Cap PO SCH (14:00)
[2017-03-10] MEDS: Dextrose 5%-Lactated Ringers 1,000 ML IV SCH ×2 (14:26→23:43)
[2017-03-10] MEDS ORDERED: Pantoprazole 40 MG Vial IV SCH (14:30)
[2017-03-10] MEDS ORDERED: Iopamidol 612 MG/ML 100 ML Bottle IV PRN (14:52)
[2017-03-10] MEDS ORDERED: Iohexol 300 MG/ML 30 ML Bottle PO ONE (14:52)
[2017-03-10] MEDS ORDERED: Sodium Chloride 0.9% 100 ML IV SCH (15:00)
[2017-03-10] MEDS: Meropenem 500 MG in Sodium Chloride 0.9% 100 ML IV SCH ×2 (15:50→20:29)
[2017-03-10] MEDS ORDERED: RIZATRIPTAN BENZOATE 5 MG PO PRN (15:53)
[2017-03-10] MEDS ORDERED: [UNRECOGNIZED DRUG - OTHER] EYELF SCH (16:00)
[2017-03-10] MEDS ORDERED: GLY EYELF SCH (16:00)
[2017-03-10] MEDS ORDERED: CARBOXYMETHYL EYELF SCH (16:00)
[2017-03-10] MEDS ORDERED: POLY80 EYELF SCH (16:00)
[2017-03-10] MEDS ORDERED: Rizatriptan 10 MG Tab.DIS PO PRN (16:15)
[2017-03-10] MEDS: HYDROmorphone 2 MG Tab PO PRN ×2 (17:54→22:39)
[2017-03-10] MEDS: Hypromellose 0.4% Ophth Soln 15 ML Bottle EYELF SCH ×2 (17:56→20:29)
[2017-03-10] MEDS: Simvastatin 20 MG Tab PO SCH (20:29)
[2017-03-10] MEDS: busPIRone 5 MG Tab PO SCH (20:29)
[2017-03-10] MEDS: Formoterol/Mometasone 200-5 MCG 8.8 GM Inhaler IH SCH (20:30)
[2017-03-10] MEDS: Erythromycin Base 0.5% Ophth Oint 3.5 GM Tube EYELF SCH (20:30)
[2017-03-10] MEDS: Acetaminophen 325 MG Tab PO PRN (20:31)
[2017-03-10] MEDS ORDERED: Erythromycin Base 0.5% Ophth Oint 1 GM Tube EYERT SCH (21:00)
[2017-03-11] MEDS: Acetaminophen 325 MG Tab PO PRN ×3 (01:31→13:33)
[2017-03-11] MEDS: Hypromellose 0.4% Ophth Soln 15 ML Bottle EYELF SCH ×6 (01:32→22:04)
[2017-03-11] MEDS: HYDROmorphone 2 MG Tab PO PRN ×4 (02:48→19:46)
[2017-03-11] MEDS: Meropenem 500 MG in Sodium Chloride 0.9% 100 ML IV SCH ×4 (02:50→22:04)
[2017-03-11] MEDS: Dextrose 5%-Lactated Ringers 1,000 ML IV SCH (08:14)
[2017-03-11] MEDS: Formoterol/Mometasone 200-5 MCG 8.8 GM Inhaler IH SCH ×2 (08:43→22:03)
[2017-03-11] MEDS: busPIRone 5 MG Tab PO SCH ×2 (08:44→22:03)
[2017-03-11] MEDS: Propranolol 80 MG Cap.ER PO SCH (08:45)
[2017-03-11] MEDS: Fluticasone Propionate Nasal Spray 16 GM Bottle NASBOTH SCH (08:45)
[2017-03-11] MEDS: Lactobacillus Rhamnosus GG (Probiotic) Cap PO SCH (08:45)
[2017-03-11] MEDS: Celecoxib 200 MG Cap PO SCH (08:45)
[2017-03-11] MEDS: Calcitriol 0.25 MCG Cap PO SCH (08:46)
[2017-03-11] MEDS: Cetirizine 10 MG Tab PO SCH (08:46)
[2017-03-11] MEDS ORDERED: Non-Formulary Medication 1 Each (Simvastatin [Zocor] 10 MG) PO SCH (09:00)
[2017-03-11] MEDS ORDERED: PROPRANOLOL HCL PO SCH (09:00)
[2017-03-11] MEDS ORDERED: Fluconazole 150 MG Tab PO SCH (09:00)
--- NOTE | 2017-03-11 09:24 | PN ---
DATE OF SERVICE: 03/11/2017 SUBJECTIVE: Tessy reports her pain is controlled with KENO WRITER. Vital sign, she has been afebrile. She is on IV antibiotics, tolerating it well. CT scan was completed, reviewed by Dr. Aston Diaz this morning. Oral intake 560, urine output 2600. She had 60% of her supper last evening. REVIEW OF SYSTEMS: HEENT: Negative. No fever, chills, night sweats, or fatigue. NECK: Negative. CHEST: No chest pain, shortness of breath, fast or irregular heart beat. LUNGS: No cough. ABDOMEN: Pain is controlled as stated above, it is a 7/10, but she has been sleeping soundly. Redness is less as marked. Abdomen is much less tender and the area around the incision is softer. EXTREMITIES: Negative for joint pain or swelling. SKIN: Denies any rash or changes in moles. NEURO: No headaches, dizziness, or loss of coordination. PSYCHIATRIC: Negative. OBJECTIVE: GENERAL: Tessy Mathis is a 66-year-old female. VITAL SIGNS: Height is 5 feet 2 inches, weight is 155 pounds. TPR is 98, 59, 16. Blood pressure 119/54. O2 saturations by pulse oximetry is 97%. HEENT: Negative. NECK: Supple. HEART: Regular rate and rhythm. LUNGS: Clear. ABDOMEN: Nontender this morning. The pinkness around the incision is decreased in size and is less firm. Remainder of examination of abdomen is negative. Incisions well healed and closed. Area of redness actually is below the actual incision itself and extends only up about a half an inch. : Deferred. EXTREMITIES: Without peripheral edema. SCDs are on. SKIN: Without rash. ASSESSMENT: 1. Infection of incision. 2. Abdominal pain. 3. Status post laparotomy for lysis of adhesions, revision of Candy-en-Y gastric bypass surgery, and partial small bowel obstruction. PLAN: Continue same orders. We will evaluate p.r.n. or in the a.m. Lesia Young PA-C /[id number]
[2017-03-11] MEDS: Pantoprazole 40 MG Tab.CR PO SCH (13:33)
[2017-03-11] MEDS ORDERED: Furosemide 20 MG/2 ML VIAL IVPUSH ONE (16:15)
[2017-03-11] MEDS: Erythromycin Base 0.5% Ophth Oint 3.5 GM Tube EYELF SCH (22:03)
[2017-03-11] MEDS: Simvastatin 20 MG Tab PO SCH (22:05)
[2017-03-12] MEDS: HYDROmorphone 2 MG Tab PO PRN (01:00)
[2017-03-12] MEDS: Hypromellose 0.4% Ophth Soln 15 ML Bottle EYELF SCH ×6 (01:00→21:22)
[2017-03-12] MEDS: Meropenem 500 MG in Sodium Chloride 0.9% 100 ML IV SCH ×4 (02:36→21:21)
[2017-03-12] MEDS: Acetaminophen 325 MG Tab PO PRN ×5 (04:15→23:31)
[2017-03-12] MEDS ORDERED: Lidocaine 1% with EPINEPHrine 1:100,000 50 ML MDV ONE (08:36)
[2017-03-12] MEDS: Dextrose 5%-Lactated Ringers 1,000 ML IV SCH (08:39)
[2017-03-12] MEDS ORDERED: Lidocaine 1% with EPINEPHrine 1:100,000 50 ML MDV INJECT ONE (08:40)
[2017-03-12] MEDS: busPIRone 5 MG Tab PO SCH ×2 (08:45→21:22)
[2017-03-12] MEDS: Calcitriol 0.25 MCG Cap PO SCH (08:45)
[2017-03-12] MEDS: Pantoprazole 40 MG Tab.CR PO SCH (08:45)
[2017-03-12] MEDS: Cetirizine 10 MG Tab PO SCH (08:45)
[2017-03-12] MEDS: Lactobacillus Rhamnosus GG (Probiotic) Cap PO SCH (08:45)
[2017-03-12] MEDS: Celecoxib 200 MG Cap PO SCH (08:45)
[2017-03-12] MEDS: Propranolol 80 MG Cap.ER PO SCH (08:45)
[2017-03-12] MEDS: Fluticasone Propionate Nasal Spray 16 GM Bottle NASBOTH SCH (08:47)
--- NOTE | 2017-03-12 09:07 | US ---
Abdomen Ltd INDICATION: Red, Firm area around incision COMPARISON: CT 03/10/2017 FINDINGS: Ultrasound of the lower abdomen incision site performed. There is a 3.9 x 1.7 x 1.4 cm irregular hypoechoic area deep to the incision approximately 2 cm. There is no internal vascularity with color Doppler. This may have been present on prior CT though there was mostly induration in this region. IMPRESSION: 3.9 cm irregular hypoechoic area deep to the incision x 2 cm. Differential diagnosis in cludes postoperative fluid collection or abscess. If needed, ultrasound guided aspiration could be pe rformed. Ultrasound note indicates Dr. Diaz was given results.
--- NOTE | 2017-03-12 09:20 | PN ---
DATE OF SERVICE: 03/12/2017 SUBJECTIVE: Tessy's temp max of 99.7. She did have 2 large bowel movements, so she is feeling better. The area that is marked for redness has exceeded on the original wilson. Ultrasound will be obtained. REVIEW OF SYSTEMS: Remainder of review of systems reviewed. HEENT: Negative. NECK: Negative. CHEST: No chest pain, shortness of breath, fast or irregular heart beat. LUNGS: No cough. ABDOMEN: As above. : No UTI signs and symptoms. EXTREMITIES: No joint pain or swelling. SKIN: No rash. NEURO: No dizziness or loss of coordination. PSYCHIATRIC: Negative. OBJECTIVE: GENERAL: Tessy Mathis is a 66-year-old female. VITAL SIGNS: TPR is 97, 61, 18, blood pressure is 109/54. HEENT: Negative. NECK: Supple. HEART: Regular rate and rhythm. LUNGS: Clear. ABDOMEN: There is an increased area of redness with some fluid palpated above the marked area and it is warm to touch. Some fluctuance is palpated. EXTREMITIES: Without peripheral edema. ASSESSMENT: Infected incision and to check ultrasound of limited abdomen to check for any seroma or area of abscess, and to call Dr. Diaz with results. Rx Zyvox 600 mg IV q.12 hours. ADDENDUM: Dr. Diaz was contacted regarding ultrasound. He did open up the incision at bedside and it will be open but packed for healing. Good pulmonary toilet encouraged. We will evaluate p.r.n. or in a.m. Lesia Young PA-C /[id number]
[2017-03-12] MEDS: Linezolid 600 MG in Premix Bag 1 BAG IV SCH ×2 (09:45→20:01)
[2017-03-12] MEDS: Formoterol/Mometasone 200-5 MCG 8.8 GM Inhaler IH SCH ×2 (18:47→21:22)
[2017-03-12] MEDS: Erythromycin Base 0.5% Ophth Oint 3.5 GM Tube EYELF SCH (21:22)
[2017-03-12] MEDS: Simvastatin 20 MG Tab PO SCH (21:23)
[2017-03-13] MEDS: Hypromellose 0.4% Ophth Soln 15 ML Bottle EYELF SCH ×4 (01:52→08:35)
[2017-03-13] MEDS: Meropenem 500 MG in Sodium Chloride 0.9% 100 ML IV SCH (03:21)
[2017-03-13] MEDS: Acetaminophen 325 MG Tab PO PRN ×2 (03:22→07:44)
[2017-03-13] MEDS: Pantoprazole 40 MG Tab.CR PO SCH (07:44)
[2017-03-13] MEDS ORDERED: Ciprofloxacin 500 MG Tab PO SCH (08:00)
[2017-03-13] MEDS: Fluticasone Propionate Nasal Spray 16 GM Bottle NASBOTH SCH (08:35)
[2017-03-13] MEDS: Cetirizine 10 MG Tab PO SCH (08:36)
[2017-03-13] MEDS: Propranolol 80 MG Cap.ER PO SCH (08:36)
[2017-03-13] MEDS: Lactobacillus Rhamnosus GG (Probiotic) Cap PO SCH (08:36)
[2017-03-13] MEDS: Celecoxib 200 MG Cap PO SCH (08:36)
[2017-03-13] MEDS: busPIRone 5 MG Tab PO SCH (08:36)
[2017-03-13] MEDS: Calcitriol 0.25 MCG Cap PO SCH (08:36)
[2017-03-13] MEDS ORDERED: Doxycycline 100 MG Cap PO SCH (09:00)
[2017-03-13] MEDS ORDERED: ESTRADIOL VAG SCH (10:00)
--- NOTE | 2017-03-14 09:23 | DISCH ---
ADMISSION DIAGNOSES: 1. Infection in incision. 2. Abdominal pain. 3. Exploratory lap with revision of Candy-en-Y and reduction of small bowel volvulus on 02/26/2017. 4. Status post Candy-en-Y gastric bypass surgery. 5. Unspecified surgical malabsorption. 6. B12 deficiency. 7. Asthma. DISCHARGE DIAGNOSIS: Incisional infection. Gram stain revealed a few Gram-positive cocci. Identification and sensitivity to follow. HISTORY: Tessy Mathis is a 66-year-old female. She had an exploratory laparotomy on 02/26/2017. Her nicholas were removed, and she did not develop any pain until 03/08/2017. She ran a low-grade fever, developed pain, presented to the clinic for evaluation on 03/10/2017, and she was a direct admit to the hospital. HOSPITAL COURSE: Since being admitted, she has had a CT and ultrasound of her abdomen on 02/10/2017. Aston Diaz MD, did open up her incision at bedside. She did have some purulent material that was drained. Her incision remains to be open, and she will be going home on antibiotics. Culture and sensitivity and identification are pending. She will be treated with two different antibiotics. Her vital signs have been stable. Her pain is now well managed, and she is able to be discharged to go home with her daughter, who is an RN in [place], [place]. PHYSICAL EXAMINATION: GENERAL: Tessy is a 66-year-old female. VITAL SIGNS: Height is 5 feet and 1.8 inches. Weight is 155 pounds. TPR with temperature of 96.8, pulse of 64, respirations of 16, and blood pressure of 162/79. HEENT: Negative. NECK: Supple. HEART: Regular rate and rhythm. LUNGS: Clear. ABDOMEN: Incision is packed. Abdominal binder is on. EXTREMITIES: Without peripheral edema. DISPOSITION: Discharged to home. CONDITION: Stable and improving. DISCHARGE FOLLOWUP: Follow up with Lesia Young PA-C, on 03/19/2017 at 11:00 a.m. HOME MEDICATIONS: 1. Tylenol 650 mg oral q.4 hours p.r.n. pain. 2. Celebrex 200 mg oral daily, #14. 3. Cipro 500 mg oral b.i.d., #14. 4. Doxycycline 100 mg twice daily, #14. 5. Dilaudid 2 mg one to two every 4 hours p.r.n. pain, #20. 6. Culturelle one capsule daily. 7. She is to resume taking her Xanax 0.5 mg twice daily. 8. Ventolin two inhalations every 4 hours p.r.n. shortness of breath. 9. DuoNeb as directed. 10.Calcitriol 0.25 mcg oral daily. 11.Calcium carbonate 260 mg oral three times a day. 12.Refresh Optive Advanced drops, one drop as directed to each eye. 13.Zyrtec 10 mg oral daily. 14.Vitamin D3, 1000 international units daily. 15.Estradiol one applicator vaginally on Friday and , twice weekly. 16.Erythromycin 0.5% ophthalmic ointment at bedtime. 17.Diflucan 150 mg oral daily. 18.Flonase use as directed. 19.Vitron-C one tablet oral daily. 20.MiraLAX 17 g oral twice daily. 21.Inderal LA 240 mg oral daily. 22.Maxalt 5 mg oral daily. 23.Zocor 10 mg oral daily. 24.Buspirone 5 mg oral twice daily. 25.Vistaril 100 mg oral twice daily. DIET AFTER DISCHARGE: Step 4 gastric bypass diet. ACTIVITY: As tolerated. Shower/bathing, may shower. DISCHARGE INSTRUCTIONS: Notify provider of fever, pain, swelling, redness, nausea, or vomiting. Wound incision care, keep site clean and dry. Pack open wound twice daily. May shower before each packing.
== END 2017-03-13 09:55 | disposition home or self-care (01) | DRG 863 ==
LOC: JP.MS 13:00
PROVIDERS: ADMIT Surgery; ATTEND Surgery
DX: T81.4XXA Infection following a procedure, initial encounter (principal); K91.2 Postsurgical malabsorption, not elsewhere classified; Z79.899 Other long term (current) drug therapy; E53.8 Deficiency of other specified B group vitamins
CPT/HCPCS: 74177; 76705; 76705-26; 87070; 87077; 87186; 87205; A9270-GY; C9113; J1940; J2020; J2185; J7030; J7042; Q9965; Q9967

== ENCOUNTER 2022-05-23 16:46 | Emergency (ER) | payer MEDICARE, BC ==
[2022-05-23] MEDS ORDERED: Sodium Chloride 0.9% 10 ML Syringe FLUSH PRN (17:38)
[2022-05-23] MEDS ORDERED: fentaNYL 100 MCG/2 ML SDV IVPUSH ONE (17:39)
[2022-05-23] MEDS ORDERED: Ondansetron 4 MG/2 ML SDV IVPUSH ONE (17:39)
[2022-05-23] MEDS ORDERED: Lactated Ringers 1,000 ML IV SCH (17:45)
[2022-05-23] MEDS ORDERED: Sodium Chloride 0.9% 10 ML Syringe FLUSH ONE (17:46)
[2022-05-23] MEDS ORDERED: Iopamidol 612 MG/ML 100 ML Bottle IV SCH (18:00)
[2022-05-23] MEDS ORDERED: Sodium Chloride 0.9% 50 ML IV SCH (18:00)
[2022-05-23 18:20] LABS: ESTIMATED GFR 44 mL/min (>60)
[2022-05-23 18:46] LABS: TROPONIN I HIGH SENSITIVITY 5.5 pg/mL (<=60.3)
[2022-05-23] MEDS ORDERED: Pantoprazole 40 MG Vial IVPUSH ONE (19:21)
== END 2022-05-23 20:33 | disposition home or self-care (01) ==
LOC: JP.ED 16:46
DX: N30.01 Acute cystitis with hematuria (principal); I10 Essential (primary) hypertension; Z91.048 Other nonmedicinal substance allergy status; Z88.0 Allergy status to penicillin; Z88.1 Allergy status to other antibiotic agents; Z88.8 Allergy status to other drugs, medicaments and biological substances; Z79.899 Other long term (current) drug therapy
CPT/HCPCS: 36415; 74177; 80053; 81001; 83605; 83690; 84484; 85025; 87086; 87088; 87186; 96361; 96374; 96375; 99284; C9113; J2405; J3010; J3490; J7120; Q9967; 99283

== ENCOUNTER 2022-05-27 06:34 | Inpatient (IN) | payer MEDICARE, BC ==
[2022-05-27] MEDS ORDERED: Propofol 200 MG/20 ML SDV ONE (07:08)
[2022-05-27] MEDS ORDERED: fentaNYL 50 MCG/ML SDV ONE (07:08)
[2022-05-27] MEDS: Dextrose 5%-Lactated Ringers 1,000 ML IV SCH ×3 (07:15→21:43)
[2022-05-27] MEDS ORDERED: Ondansetron 4 MG/2 ML SDV IVPUSH PRN (08:54)
[2022-05-27 09:57] LABS: ESTIMATED GFR 54 mL/min (>60)
[2022-05-27] MEDS ORDERED: Naloxone 0.4 MG/ML SDV IV PRN (10:00)
[2022-05-27] MEDS: HYDROmorphone/Normal Saline 6 MG/30 ML PCA Vial IV PRN (10:11)
[2022-05-27] MEDS: Formoterol/Mometasone 100-5 MCG 8.8 GM Inhaler IH SCH ×2 (10:26→20:27)
[2022-05-27] MEDS: Topiramate 25 MG Tab PO SCH ×2 (11:02→20:28)
[2022-05-27] MEDS: Oxybutynin 5 MG Tab PO SCH ×2 (11:02→20:28)
[2022-05-27] MEDS: Acetaminophen 500 MG Tab PO SCH ×3 (11:02→22:04)
[2022-05-27] MEDS: ClonazePAM 1 MG Tab PO SCH ×2 (11:12→20:32)
[2022-05-27] MEDS: Phenazopyridine 95 MG Tab PO SCH ×2 (15:55→20:29)
[2022-05-27] MEDS: Calcitriol 0.25 MCG Cap PO SCH (20:28)
[2022-05-27] MEDS: Tamsulosin 0.4 MG Cap.ER PO SCH (20:28)
[2022-05-27] MEDS: Erythromycin Base 0.5% Ophth Oint 1 GM Tube EYELF SCH (20:28)
[2022-05-27] MEDS: Propranolol 60 MG Cap.ER PO SCH (20:28)
[2022-05-27] MEDS: hydrOXYzine HCl 25 MG Tab PO SCH (20:28)
[2022-05-28] MEDS: Acetaminophen 500 MG Tab PO SCH ×3 (03:39→21:06)
[2022-05-28] MEDS ORDERED: Albuterol/Ipratropium 3.0-0.5 MG/3 ML Neb Soln INH ONE ×2 (05:30→08:00)
[2022-05-28] MEDS ORDERED: Lidocaine 1% with EPINEPHrine 1:100,000 50 ML MDV ONE (06:54)
[2022-05-28] MEDS ORDERED: Meropenem 500 MG SDV ONE (06:54)
[2022-05-28] MEDS ORDERED: Bupivacaine 0.5% 50 ML MDV ONE (06:54)
[2022-05-28] MEDS ORDERED: fentaNYL 250 MCG/5 ML SDV ONE (07:07)
[2022-05-28] MEDS ORDERED: Succinylcholine 200 MG/10 ML MDV ONE (07:08)
[2022-05-28] MEDS ORDERED: Ondansetron 4 MG/2 ML SDV ONE (07:08)
[2022-05-28] MEDS ORDERED: Rocuronium 50 MG/5 ML Vial ONE (07:08)
[2022-05-28] MEDS ORDERED: Neostigmine Methylsulfate 1 MG/ML 5 ML Syringe ONE (07:08)
[2022-05-28] MEDS ORDERED: Dexamethasone 4 MG/ML SDV ONE (07:08)
[2022-05-28] MEDS ORDERED: Glycopyrrolate 0.2 MG/ML 5 ML MDV ONE (07:08)
[2022-05-28] MEDS ORDERED: Propofol 200 MG/20 ML SDV ONE (07:08)
[2022-05-28] MEDS: Formoterol/Mometasone 100-5 MCG 8.8 GM Inhaler IH SCH ×2 (07:38→21:09)
[2022-05-28 08:17] LABS: HEMOGLOBIN A1C 5.9 % (4.5-6.2)
[2022-05-28] MEDS ORDERED: Desvenlafaxine 50 MG Tab.ER PO SCH (09:00)
[2022-05-28] MEDS ORDERED: Ketamine 15 MG in Sodium Chloride 0.9% 19.85 ML IV SCH ×2 (09:15→16:00)
[2022-05-28] MEDS ORDERED: Ropivacaine 30 ML, dexAMETHasone 8 MG, EPINEPHrine 0.4 MG, Sodium Chloride 0.9% 47.6 ML NERVRT SCH ×8 (09:15→16:00)
[2022-05-28] MEDS ORDERED: Meropenem 500 MG in Sodium Chloride 0.9% 50 ML IV ONE ×2 (09:15→16:00)
[2022-05-28] MEDS ORDERED: Ketamine 500 MG/5 ML MDV IV SCH ×2 (09:15→16:00)
[2022-05-28] MEDS: Oxybutynin 5 MG Tab PO SCH ×2 (10:18→21:08)
[2022-05-28] MEDS: Clopidogrel 75 MG Tab PO SCH (10:18)
[2022-05-28] MEDS: Topiramate 25 MG Tab PO SCH ×2 (10:18→21:08)
[2022-05-28] MEDS: ClonazePAM 1 MG Tab PO SCH ×2 (10:18→21:17)
[2022-05-28] MEDS: Phenazopyridine 95 MG Tab PO SCH ×3 (10:18→21:09)
[2022-05-28] MEDS ORDERED: Labetalol 20 MG/4 ML Syringe ONE (11:19)
[2022-05-28] MEDS ORDERED: hydrALAZINE 20 MG/ML SDV ONE (11:42)
[2022-05-28] MEDS ORDERED: Sugammadex Sodium 200 MG/2 ML VIAL ONE (11:53)
[2022-05-28] MEDS ORDERED: Naloxone 0.4 MG/ML SDV ONE (11:56)
[2022-05-28] MEDS: Erythromycin Base 0.5% Ophth Oint 1 GM Tube EYELF SCH ×2 (13:43→21:11)
[2022-05-28] MEDS: Fluticasone NASAL Spray 16 GM Bottle NASBOTH SCH (13:43)
[2022-05-28] MEDS: Erythromycin Base 0.5% Ophth Oint 1 GM Tube EYERT SCH (13:43)
[2022-05-28] MEDS ORDERED: Cyclobenzaprine 10 MG Tab PO PRN (13:54)
[2022-05-28] MEDS ORDERED: Acetaminophen 500 MG Tab PO PRN (14:00)
[2022-05-28] MEDS ORDERED: Ondansetron 4 MG/2 ML SDV IVPUSH PRN (14:00)
[2022-05-28] MEDS ORDERED: diphenhydrAMINE 50 MG/ML SDV IVPUSH PRN (14:00)
[2022-05-28] MEDS ORDERED: hydrOXYzine HCL 100 MG/2 ML SDV IM PRN (14:00)
[2022-05-28] MEDS ORDERED: Sodium Ferric Gluconate Cmplex 250 MG in Sodium Chloride 0.9% 100 ML IV SCH ×2 (14:00→16:00)
[2022-05-28] MEDS ORDERED: Labetalol 20 MG/4 ML Syringe IVPUSH PRN (14:00)
[2022-05-28] MEDS: Albuterol/Ipratropium 3.0-0.5 MG/3 ML Neb Soln INH SCH ×2 (14:25→21:15)
[2022-05-28] MEDS: Pantoprazole 40 MG Vial IVPUSH SCH (14:47)
[2022-05-28] MEDS: Sodium Ferric Gluconate Cmplex 250 MG in Sodium Chloride 0.9% 100 ML IV SCH (15:53)
[2022-05-28] MEDS: MVI, Adult with Vitamin K 10 ML, Thiamine 200 MG, Zinc/Copper/Manganese/Selenium 1 ML i... IV SCH ×4 (16:02)
[2022-05-28] MEDS: Meropenem 500 MG in Sodium Chloride 0.9% 50 ML IV SCH ×2 (16:02→21:17)
[2022-05-28] MEDS: Heparin Sodium 5,000 Units/ML Vial SUBCUT SCH (21:06)
[2022-05-28] MEDS: Tamsulosin 0.4 MG Cap.ER PO SCH (21:08)
[2022-05-28] MEDS: Propranolol 60 MG Cap.ER PO SCH (21:08)
[2022-05-28] MEDS: Calcitriol 0.25 MCG Cap PO SCH (21:08)
[2022-05-28] MEDS: hydrOXYzine HCl 25 MG Tab PO SCH (21:08)
[2022-05-28] MEDS: Lubiprostone 24 MCG Cap PO SCH (21:08)
[2022-05-28] MEDS: Dextrose 5%-Lactated Ringers 1,000 ML IV SCH (23:02)
[2022-05-29] MEDS: Acetaminophen 500 MG Tab PO SCH ×3 (03:54→20:48)
[2022-05-29] MEDS: Meropenem 500 MG in Sodium Chloride 0.9% 50 ML IV SCH ×4 (03:56→21:00)
[2022-05-29] MEDS ORDERED: Iopamidol 612 MG/ML 30 ML SDV PO STA (04:14)
[2022-05-29] MEDS: Dextrose 5%-Lactated Ringers 1,000 ML IV SCH ×2 (05:25→13:06)
[2022-05-29] MEDS: Formoterol/Mometasone 100-5 MCG 8.8 GM Inhaler IH SCH ×2 (07:42→20:50)
[2022-05-29] MEDS: Albuterol/Ipratropium 3.0-0.5 MG/3 ML Neb Soln INH SCH ×4 (07:42→20:39)
[2022-05-29] MEDS: Heparin Sodium 5,000 Units/ML Vial SUBCUT SCH ×2 (08:11→20:46)
[2022-05-29] MEDS: Lubiprostone 24 MCG Cap PO SCH ×2 (09:33→20:49)
[2022-05-29] MEDS: Celecoxib 200 MG Cap PO SCH ×2 (09:34→20:49)
[2022-05-29] MEDS: Docusate Sodium 100 MG Cap PO SCH ×2 (09:35→20:49)
[2022-05-29] MEDS: Desvenlafaxine Succinate 25 MG TAB.ER PO SCH (09:36)
[2022-05-29] MEDS: Bisacodyl 5 MG Tab PO SCH ×2 (09:37→20:50)
[2022-05-29] MEDS: Erythromycin Base 0.5% Ophth Oint 1 GM Tube EYELF SCH ×2 (09:39→20:51)
[2022-05-29] MEDS: Erythromycin Base 0.5% Ophth Oint 1 GM Tube EYERT SCH (09:39)
[2022-05-29] MEDS: Fluticasone NASAL Spray 16 GM Bottle NASBOTH SCH (09:40)
[2022-05-29] MEDS: Oxybutynin 5 MG Tab PO SCH ×2 (09:44→20:49)
[2022-05-29] MEDS: SCOPOLAMINE PATCH CHECK TOP SCH (09:44)
[2022-05-29] MEDS: Clopidogrel 75 MG Tab PO SCH (09:45)
[2022-05-29] MEDS: Topiramate 25 MG Tab PO SCH ×2 (09:46→20:49)
[2022-05-29] MEDS: Phenazopyridine 95 MG Tab PO SCH ×3 (09:47→20:49)
[2022-05-29] MEDS: ClonazePAM 1 MG Tab PO SCH ×2 (09:52→20:59)
[2022-05-29] MEDS: Pantoprazole 40 MG Vial IVPUSH SCH (14:07)
[2022-05-29] MEDS: MVI, Adult with Vitamin K 10 ML, Thiamine 200 MG, Zinc/Copper/Manganese/Selenium 1 ML i... IV SCH ×4 (15:30)
[2022-05-29] MEDS: Sodium Ferric Gluconate Cmplex 250 MG in Sodium Chloride 0.9% 100 ML IV SCH (15:31)
[2022-05-29] MEDS: HYDROmorphone/Normal Saline 6 MG/30 ML PCA Vial IV PRN (20:13)
[2022-05-29] MEDS: Ondansetron 4 MG Tab.DIS PO PRN (20:16)
[2022-05-29] MEDS: Tamsulosin 0.4 MG Cap.ER PO SCH (20:49)
[2022-05-29] MEDS: Calcitriol 0.25 MCG Cap PO SCH (20:49)
[2022-05-29] MEDS: Propranolol 60 MG Cap.ER PO SCH (20:50)
[2022-05-29] MEDS: hydrOXYzine HCl 25 MG Tab PO SCH (20:50)
[2022-05-30] MEDS: Acetaminophen 500 MG Tab PO SCH ×3 (04:56→19:44)
[2022-05-30] MEDS: Dextrose 5%-Lactated Ringers 1,000 ML IV SCH (06:41)
[2022-05-30] MEDS: Albuterol/Ipratropium 3.0-0.5 MG/3 ML Neb Soln INH SCH ×4 (07:03→21:38)
[2022-05-30] MEDS: Formoterol/Mometasone 100-5 MCG 8.8 GM Inhaler IH SCH ×2 (07:03→21:48)
[2022-05-30] MEDS: Docusate Sodium 100 MG Cap PO SCH ×2 (08:22→21:47)
[2022-05-30] MEDS: Bisacodyl 5 MG Tab PO SCH ×2 (08:22→21:47)
[2022-05-30] MEDS: Heparin Sodium 5,000 Units/ML Vial SUBCUT SCH ×2 (08:22→19:42)
[2022-05-30] MEDS: Desvenlafaxine Succinate 25 MG TAB.ER PO SCH (08:23)
[2022-05-30] MEDS: Lubiprostone 24 MCG Cap PO SCH ×2 (08:23→21:47)
[2022-05-30] MEDS: Topiramate 25 MG Tab PO SCH ×2 (08:23→21:47)
[2022-05-30] MEDS: Oxybutynin 5 MG Tab PO SCH ×2 (08:23→21:47)
[2022-05-30] MEDS: Celecoxib 200 MG Cap PO SCH ×2 (08:23→21:47)
[2022-05-30] MEDS: SCOPOLAMINE PATCH CHECK TOP SCH (08:24)
[2022-05-30] MEDS: Clopidogrel 75 MG Tab PO SCH (08:24)
[2022-05-30] MEDS: Magnesium Hydroxide 400 MG/5 ML Susp 30 ML Cup PO SCH ×2 (08:28→21:46)
[2022-05-30] MEDS: Fluticasone NASAL Spray 16 GM Bottle NASBOTH SCH (08:29)
[2022-05-30] MEDS: Erythromycin Base 0.5% Ophth Oint 1 GM Tube EYELF SCH ×2 (08:30→21:48)
[2022-05-30] MEDS: Erythromycin Base 0.5% Ophth Oint 1 GM Tube EYERT SCH (08:30)
[2022-05-30] MEDS: ClonazePAM 1 MG Tab PO SCH ×2 (08:33→21:51)
[2022-05-30] MEDS: HYDROmorphone 2 MG Tab PO PRN ×2 (08:47→16:55)
[2022-05-30] MEDS: Phenazopyridine 95 MG Tab PO SCH ×3 (08:54→21:47)
[2022-05-30] MEDS ORDERED: Cyanocobalamin (Vitamin B12) 1,000 MCG/ML SDV IM ONE (09:00)
[2022-05-30] MEDS: Pantoprazole 40 MG Delayed-Release Granules 1 Packet PO SCH (16:56)
[2022-05-30] MEDS: Propranolol 60 MG Cap.ER PO SCH (21:47)
[2022-05-30] MEDS: hydrOXYzine HCl 25 MG Tab PO SCH (21:47)
[2022-05-30] MEDS: Tamsulosin 0.4 MG Cap.ER PO SCH (21:47)
[2022-05-30] MEDS: Calcitriol 0.25 MCG Cap PO SCH (21:47)
[2022-05-31] MEDS: Acetaminophen 500 MG Tab PO SCH ×3 (03:35→19:55)
[2022-05-31] MEDS: Formoterol/Mometasone 100-5 MCG 8.8 GM Inhaler IH SCH ×2 (07:09→22:06)
[2022-05-31] MEDS: Albuterol/Ipratropium 3.0-0.5 MG/3 ML Neb Soln INH SCH ×4 (07:09→22:06)
[2022-05-31] MEDS: Heparin Sodium 5,000 Units/ML Vial SUBCUT SCH ×2 (07:51→19:55)
[2022-05-31] MEDS: Celecoxib 200 MG Cap PO SCH ×2 (08:06→22:06)
[2022-05-31] MEDS: Clopidogrel 75 MG Tab PO SCH (08:06)
[2022-05-31] MEDS: Oxybutynin 5 MG Tab PO SCH ×2 (08:08→22:07)
[2022-05-31] MEDS: Lubiprostone 24 MCG Cap PO SCH ×2 (08:08→22:07)
[2022-05-31] MEDS: Docusate Sodium 100 MG Cap PO SCH ×2 (08:08→22:07)
[2022-05-31] MEDS: Bisacodyl 5 MG Tab PO SCH ×2 (08:09→22:07)
[2022-05-31] MEDS: Desvenlafaxine Succinate 25 MG TAB.ER PO SCH (08:09)
[2022-05-31] MEDS: Erythromycin Base 0.5% Ophth Oint 1 GM Tube EYELF SCH ×2 (08:10→22:09)
[2022-05-31] MEDS: Erythromycin Base 0.5% Ophth Oint 1 GM Tube EYERT SCH (08:10)
[2022-05-31] MEDS: Fluticasone NASAL Spray 16 GM Bottle NASBOTH SCH (08:11)
[2022-05-31] MEDS: Magnesium Hydroxide 400 MG/5 ML Susp 30 ML Cup PO SCH ×2 (08:12→22:08)
[2022-05-31] MEDS: ClonazePAM 1 MG Tab PO SCH ×2 (08:17→22:06)
[2022-05-31] MEDS: HYDROmorphone 2 MG Tab PO PRN ×2 (08:18→17:17)
[2022-05-31] MEDS: Phenazopyridine 95 MG Tab PO SCH ×3 (08:32→22:07)
[2022-05-31] MEDS: Topiramate 25 MG Tab PO SCH ×2 (08:32→22:07)
[2022-05-31] MEDS ORDERED: Polyethylene Glycol 3350 Powder 119 GM Bottle PO ONE (09:00)
[2022-05-31 11:11] LABS: HBSAG SCREEN Negative (Negative)
[2022-05-31] MEDS: Pantoprazole 40 MG Delayed-Release Granules 1 Packet PO SCH (17:18)
[2022-05-31] MEDS: hydrOXYzine HCl 25 MG Tab PO SCH (22:06)
[2022-05-31] MEDS: Calcitriol 0.25 MCG Cap PO SCH (22:07)
[2022-05-31] MEDS: Tamsulosin 0.4 MG Cap.ER PO SCH (22:08)
[2022-05-31] MEDS: Propranolol 60 MG Cap.ER PO SCH (22:08)
[2022-06-01] MEDS: Acetaminophen 500 MG Tab PO SCH ×2 (03:34→14:09)
[2022-06-01 04:48] LABS: ESTIMATED GFR 61 mL/min (>60)
[2022-06-01] MEDS: Albuterol/Ipratropium 3.0-0.5 MG/3 ML Neb Soln INH SCH ×2 (07:23→11:24)
[2022-06-01] MEDS: Formoterol/Mometasone 100-5 MCG 8.8 GM Inhaler IH SCH (07:25)
[2022-06-01] MEDS: Heparin Sodium 5,000 Units/ML Vial SUBCUT SCH (08:07)
[2022-06-01] MEDS: Lubiprostone 24 MCG Cap PO SCH (08:07)
[2022-06-01] MEDS: Fluticasone NASAL Spray 16 GM Bottle NASBOTH SCH (08:07)
[2022-06-01] MEDS: Docusate Sodium 100 MG Cap PO SCH (08:07)
[2022-06-01] MEDS: Desvenlafaxine Succinate 25 MG TAB.ER PO SCH (08:07)
[2022-06-01] MEDS: Oxybutynin 5 MG Tab PO SCH (08:08)
[2022-06-01] MEDS: Topiramate 25 MG Tab PO SCH (08:08)
[2022-06-01] MEDS: Bisacodyl 5 MG Tab PO SCH (08:08)
[2022-06-01] MEDS: Clopidogrel 75 MG Tab PO SCH (08:08)
[2022-06-01] MEDS: Celecoxib 200 MG Cap PO SCH (08:08)
[2022-06-01] MEDS: Phenazopyridine 95 MG Tab PO SCH (08:09)
[2022-06-01] MEDS: Magnesium Hydroxide 400 MG/5 ML Susp 30 ML Cup PO SCH (08:11)
[2022-06-01] MEDS: Erythromycin Base 0.5% Ophth Oint 1 GM Tube EYERT SCH (08:15)
[2022-06-01] MEDS: Erythromycin Base 0.5% Ophth Oint 1 GM Tube EYELF SCH (08:15)
[2022-06-01] MEDS: ClonazePAM 1 MG Tab PO SCH (08:17)
[2022-06-01] MEDS: Ondansetron 4 MG Tab.DIS PO PRN (10:49)
[2022-06-01] MEDS: HYDROmorphone 2 MG Tab PO PRN (10:49)
== END 2022-06-01 15:18 | disposition home or self-care (01) | DRG 329 ==
LOC: JP.SDS 06:34 → JP.MS 08:46
PROVIDERS: ADMIT Surgery; ATTEND Surgery
PROC: 0DJ08ZZ Inspection of Upper Intestinal Tract, Via Natural or Artificial Opening Endoscopic (ICD-10-PCS; 2022-05-27)
PROC: 0DS80ZZ Reposition Small Intestine, Open Approach (ICD-10-PCS; principal; 2022-05-28)
PROC: 0DB80ZZ Excision of Small Intestine, Open Approach (ICD-10-PCS; 2022-05-28)
PROC: 0WQF0ZZ Repair Abdominal Wall, Open Approach (ICD-10-PCS; 2022-05-28)
PROC: 3E0M05Z Introduction of Adhesion Barrier into Peritoneal Cavity, Open Approach (ICD-10-PCS; 2022-05-28)
DX: K95.89 Other complications of other bariatric procedure (principal); K56.2 Volvulus; K43.0 Incisional hernia with obstruction, without gangrene; I10 Essential (primary) hypertension; M81.0 Age-related osteoporosis without current pathological fracture; H54.7 Unspecified visual loss; F32.A Depression, unspecified; J45.909 Unspecified asthma, uncomplicated; Z88.1 Allergy status to other antibiotic agents; Z91.09 Other allergy status, other than to drugs and biological substances; Z79.899 Other long term (current) drug therapy; Z98.49 Cataract extraction status, unspecified eye
CPT/HCPCS: 36415; 74240; 74240-26; 80053; 82306; 82525; 82728; 82746; 83036; 83735; 84100; 84425; 84590; 84630; 85027; 86803; 87340; 87449; 88302; 88307; 93005; 93010; 94640; 97110-GP; 97162-GP; 97530-GP; 97535-GP; A9270-GY; C9113; J0131; J0171; J0330; J0360; J1100; J1170; J1642; J1644; J2020; J2185; J2310; J2405; J2704; J2710; J2795; J2916; J3010; J3410; J3411; J3420; J3490; J7121; J7620; Q0162; Q9967; U0002

== ENCOUNTER 2022-08-17 19:13 | Emergency (ER) | payer MEDICARE, BC | END 2022-08-17 21:30 | disposition home or self-care (01) | LOC: JP.ED 19:13 | DX: J34.89 Other specified disorders of nose and nasal sinuses (principal); I10 Essential (primary) hypertension; J45.909 Unspecified asthma, uncomplicated; Z91.048 Other nonmedicinal substance allergy status; Z88.0 Allergy status to penicillin; Z88.1 Allergy status to other antibiotic agents; Z79.02 Long term (current) use of antithrombotics/antiplatelets; Z79.899 Other long term (current) drug therapy; Z20.822 Contact with and (suspected) exposure to COVID-19 | CPT/HCPCS: 87081; 87880; 99283; U0002 ==

== ENCOUNTER 2022-09-19 08:28 | Day surgery (SDC) | payer MEDICARE, BC ==
[2022-09-19 09:02] LABS: HEMATOCRIT 39.9 % (34.3-46.0); HEMOGLOBIN 12.7 g/dL (11.2-15.5); MEAN CORPUSCULAR HEMOGLOBIN 29.3 pg (31.6-35.5); MEAN CORPUSCULAR HGB CONC 31.8 g/dL (31.6-35.5); MEAN CORPUSCULAR VOLUME 91.9 fL (81.4-99.0); RED BLOOD CELL COUNT 4.34 M/uL (3.77-5.24); WHITE BLOOD CELL COUNT,WBC 6.3 K/uL (3.2-11.0)
[2022-09-19] MEDS ORDERED: Lactated Ringers 1,000 ML IV ONE (09:30)
[2022-09-19 09:47] LABS: ALANINE AMINOTRANSFERASE,ALT 25 U/L (12-78); ALBUMIN 3.5 g/dL (3.4-5.0); ALKALINE PHOSPHATASE 104 U/L (46-116); ANION GAP 10.7 mmol/L (5.0-14.0); ASPARTATE AMNIOTRANSFERASE,AST 19 U/L (15-37); BILIRUBIN TOTAL 0.6 mg/dL (0.2-1.0); BLOOD UREA NITROGEN,BUN 23 mg/dL (7-18); CALCIUM 8.8 mg/dL (8.5-10.1); CARBON DIOXIDE,CO2 26 mmol/L (21-32); CHLORIDE,CL 105 mmol/L (100-108); CREATININE 1.3 mg/dL (0.6-1.0); EST CRCL DRUG DOSING (CG) 31.39 mL/min; ESTIMATED GFR 44 mL/min (>60); FERRITIN 43 ng/ml (8-388); GLUCOSE RANDOM 109 mg/dL (74-106); POTASSIUM,K 3.9 mmol/L (3.6-5.2); PROTEIN TOTAL,TP 7.2 g/dL (6.4-8.2); SODIUM,NA 142 mmol/L (140-148)
[2022-09-19 09:50] LABS: FOLIC ACID 26.5 ng/ml (8.6-58.9)
[2022-09-19] MEDS ORDERED: MVI, Adult with Vitamin K 10 ML, Thiamine 200 MG, Zinc/Copper/Manganese/Selenium 1 ML i... IV ONE ×4 (10:00)
[2022-09-19] MEDS ORDERED: Cyanocobalamin (Vitamin B12) 1,000 MCG/ML SDV IM ONE (10:30)
[2022-09-19] MEDS ORDERED: Propofol 200 MG/20 ML SDV ONE (12:46)
[2022-09-19] MEDS ORDERED: fentaNYL 50 MCG/ML SDV ONE (12:46)
[2022-09-19] MEDS ORDERED: Fluconazole/Normal Saline 400 MG in Premix Bag 1 BAG IV ONE (13:45)
== END 2022-09-19 16:23 | disposition home or self-care (01) ==
LOC: JP.SDS 08:28
PROVIDERS: ATTEND Surgery
DX: R13.10 Dysphagia, unspecified (principal); K43.9 Ventral hernia without obstruction or gangrene; K46.9 Unspecified abdominal hernia without obstruction or gangrene; N20.0 Calculus of kidney; J45.909 Unspecified asthma, uncomplicated; R06.02 Shortness of breath; F32.A Depression, unspecified; E66.9 Obesity, unspecified; Z68.26 Body mass index [BMI] 26.0-26.9, adult; Z98.84 Bariatric surgery status; Z88.5 Allergy status to narcotic agent; Z88.1 Allergy status to other antibiotic agents; Z88.8 Allergy status to other drugs, medicaments and biological substances; Z88.0 Allergy status to penicillin
CPT/HCPCS: 36415; 74176; 74176-26; 80053; 82607; 82728; 82746; 83735; 84100; 85027; J1450; J1642; J2704; J3010; J3411; J3420; J3490; J7120

== ENCOUNTER 2022-10-01 05:08 | Inpatient (IN) | payer MEDICARE, BC ==
[2022-10-01] MEDS ORDERED: Dextrose 5%-Lactated Ringers 1,000 ML IV SCH (06:00)
[2022-10-01] MEDS ORDERED: fentaNYL 250 MCG/5 ML SDV ONE (06:26)
[2022-10-01] MEDS ORDERED: Rocuronium 50 MG/5 ML Vial ONE (06:27)
[2022-10-01] MEDS ORDERED: Lidocaine 2% 5 ML SDV ONE (06:27)
[2022-10-01] MEDS ORDERED: Ondansetron 4 MG/2 ML SDV ONE (06:27)
[2022-10-01] MEDS ORDERED: Dexamethasone 4 MG/ML SDV ONE (06:27)
[2022-10-01] MEDS ORDERED: Glycopyrrolate 0.2 MG/ML 5 ML MDV ONE (06:27)
[2022-10-01] MEDS ORDERED: Propofol 200 MG/20 ML SDV ONE (06:27)
[2022-10-01] MEDS ORDERED: Bupivacaine 0.5% 50 ML MDV ONE (06:33)
[2022-10-01] MEDS ORDERED: Lidocaine 1% with EPINEPHrine 1:100,000 50 ML MDV ONE (06:33)
[2022-10-01] MEDS ORDERED: Meropenem 500 MG SDV ONE (06:33)
[2022-10-01] MEDS ORDERED: Albuterol/Ipratropium 3.0-0.5 MG/3 ML Neb Soln NEB ONE (07:15)
[2022-10-01] MEDS ORDERED: Clindamycin Phosphate in D5W 900 MG in Premix Bag 1 BAG IV ONE ×2 (07:15)
[2022-10-01] MEDS ORDERED: Ketamine 15 MG in Sodium Chloride 0.9% 19.85 ML IV SCH (07:30)
[2022-10-01] MEDS ORDERED: Ropivacaine 35 ML, dexAMETHasone 8 MG, EPINEPHrine 0.4 MG, Sodium Chloride 0.9% 42.6 ML NERVRT SCH ×4 (07:30)
[2022-10-01] MEDS ORDERED: Ketamine 500 MG/5 ML MDV IV SCH (07:30)
[2022-10-01] MEDS ORDERED: fentaNYL 100 MCG/2 ML SDV ONE (08:34)
[2022-10-01] MEDS ORDERED: Linezolid 600 MG/300 ML Premix Bag IRR ONE (08:40)
[2022-10-01] MEDS ORDERED: Sugammadex Sodium 200 MG/2 ML VIAL ONE (08:46)
[2022-10-01] MEDS ORDERED: Ondansetron 4 MG/2 ML SDV IVPUSH PRN ×2 (09:16→11:00)
[2022-10-01] MEDS ORDERED: diphenhydrAMINE 25 MG Cap PO PRN (09:16)
[2022-10-01] MEDS ORDERED: diphenhydrAMINE 50 MG/ML SDV IVPUSH PRN ×2 (09:16→11:00)
[2022-10-01] MEDS ORDERED: Naloxone 0.4 MG/ML SDV IVPUSH PRN (09:16)
[2022-10-01] MEDS: HYDROmorphone/Normal Saline 6 MG/30 ML PCA Vial IV PRN (09:25)
[2022-10-01] MEDS ORDERED: Naloxone 0.4 MG/ML SDV IV PRN (10:00)
[2022-10-01] MEDS ORDERED: Cyclobenzaprine 10 MG Tab PO PRN (10:57)
[2022-10-01] MEDS ORDERED: Labetalol 20 MG/4 ML Syringe IVPUSH PRN (11:00)
[2022-10-01] MEDS ORDERED: hydrOXYzine HCL 100 MG/2 ML SDV IM PRN (11:00)
[2022-10-01] MEDS ORDERED: Acetaminophen 500 MG Tab PO PRN (11:00)
[2022-10-01] MEDS: Dextrose 5%-Lactated Ringers 1,000 ML IV SCH ×2 (11:05→23:07)
[2022-10-01] MEDS: Albuterol/Ipratropium 3.0-0.5 MG/3 ML Neb Soln INH SCH ×3 (11:07→21:20)
[2022-10-01] MEDS ORDERED: ClonazePAM 1 MG Tab PO PRN (11:32)
[2022-10-01] MEDS ORDERED: Hypromellose 0.3% Ophth Soln 15 ML Bottle EYEBOTH PRN (11:38)
[2022-10-01] MEDS ORDERED: Pantoprazole 40 MG Vial IVPUSH SCH (14:00)
[2022-10-01] MEDS: MVI, Adult with Vitamin K 10 ML, Thiamine 200 MG, Zinc/Copper/Manganese/Selenium 1 ML i... IV SCH ×4 (15:49)
[2022-10-01] MEDS: Acetaminophen 500 MG Tab PO SCH ×2 (15:49→23:11)
[2022-10-01] MEDS: Clindamycin Phosphate in D5W 900 MG in Premix Bag 1 BAG IV SCH ×4 (15:50→23:13)
[2022-10-01] MEDS: Heparin Sodium 5,000 Units/ML Vial SUBCUT SCH (19:39)
[2022-10-01] MEDS: Topiramate 25 MG Tab PO SCH (21:13)
[2022-10-01] MEDS: Tamsulosin 0.4 MG Cap.ER PO SCH (21:13)
[2022-10-01] MEDS: Erythromycin Base 0.5% Ophth Oint 1 GM Tube EYEBOTH SCH (21:14)
[2022-10-02] MEDS: HYDROmorphone/Normal Saline 6 MG/30 ML PCA Vial IV PRN (01:59)
[2022-10-02] MEDS ORDERED: Iopamidol 612 MG/ML 50 ML SDV PO ONE (03:34)
[2022-10-02] MEDS: Dextrose 5%-Lactated Ringers 1,000 ML IV SCH ×2 (06:22→08:27)
[2022-10-02] MEDS: Formoterol/Mometasone 100-5 MCG 8.8 GM Inhaler IH SCH ×2 (07:03→20:55)
[2022-10-02] MEDS: Albuterol/Ipratropium 3.0-0.5 MG/3 ML Neb Soln INH SCH ×4 (07:03→20:46)
[2022-10-02] MEDS: Clindamycin Phosphate in D5W 900 MG in Premix Bag 1 BAG IV SCH ×2 (08:26)
[2022-10-02] MEDS: Heparin Sodium 5,000 Units/ML Vial SUBCUT SCH ×2 (08:28→20:20)
[2022-10-02] MEDS: Fluconazole 100 MG Tab PO SCH (08:29)
[2022-10-02] MEDS: Celecoxib 200 MG Cap PO SCH ×2 (08:29→20:55)
[2022-10-02] MEDS: Acetaminophen 500 MG Tab PO SCH ×2 (08:29→15:43)
[2022-10-02] MEDS: PARoxetine 20 MG Tab PO SCH (08:29)
[2022-10-02] MEDS: Calcitriol 0.25 MCG Cap PO SCH (08:30)
[2022-10-02] MEDS: Clopidogrel 75 MG Tab PO SCH (08:30)
[2022-10-02] MEDS: Erythromycin Base 0.5% Ophth Oint 1 GM Tube EYEBOTH SCH ×2 (08:30→20:53)
[2022-10-02] MEDS: Propranolol 60 MG Cap.ER PO SCH (08:30)
[2022-10-02] MEDS: Fluticasone NASAL Spray 16 GM Bottle NASBOTH SCH (08:30)
[2022-10-02] MEDS: Topiramate 25 MG Tab PO SCH ×2 (08:32→20:55)
[2022-10-02] MEDS: Pantoprazole 40 MG Tab.CR PO SCH (12:08)
[2022-10-02] MEDS: MVI, Adult with Vitamin K 10 ML, Thiamine 200 MG, Zinc/Copper/Manganese/Selenium 1 ML i... IV SCH ×4 (15:42)
[2022-10-02] MEDS ORDERED: Lactated Ringers 500 ML IV ONE (17:15)
[2022-10-02] MEDS: Tamsulosin 0.4 MG Cap.ER PO SCH (20:55)
[2022-10-02] MEDS ORDERED: Lactated Ringers 750 ML IV ONE (20:59)
[2022-10-02 21:13] LABS: BASOPHILS ABSOLUTE AUTO 0.03 K/uL (0.00-0.10); BASOPHILS PERCENT AUTO 0.3 % (0.1-1.3); HEMATOCRIT 31.1 % (34.3-46.0); HEMOGLOBIN 9.6 g/dL (11.2-15.5); IMMATURE GRAN ABSOLUTE AUTO 0.04 K/uL (0.00-0.23); IMMATURE GRAN PERCENT AUTO 0.4 % (0.0-0.7); LYMPHOCYTES ABSOLUTE AUTO 2.62 K/uL (0.8-3.3); LYMPHOCYTES PERCENT AUTO 24.6 % (11.4-47.7); MEAN CORPUSCULAR HEMOGLOBIN 29.2 pg (31.6-35.5); MEAN CORPUSCULAR HGB CONC 30.9 g/dL (31.6-35.5); MEAN CORPUSCULAR VOLUME 94.5 fL (81.4-99.0); MONOCYTES ABSOLUTE AUTO 0.78 K/uL (0.20-0.90); MONOCYTES PERCENT AUTO 7.3 % (3.3-12.6); NEUTROPHILS ABSOLUTE AUTO 7.17 K/uL (1.0-7.6); NEUTROPHILS PERCENT AUTO 67.4 % (40.0-78.1); PLATELET COUNT,PLT 222 K/uL (130-375); RED BLOOD CELL COUNT 3.29 M/uL (3.77-5.24); WHITE BLOOD CELL COUNT,WBC 10.6 K/uL (3.2-11.0)
[2022-10-02 21:39] LABS: CALCIUM 8.4 mg/dL (8.5-10.1); CREATININE 1.3 mg/dL (0.6-1.0); EST CRCL DRUG DOSING (CG) 30.55 mL/min; MAGNESIUM 1.4 mg/dL (1.8-2.4); PHOSPHORUS 4.6 mg/dL (2.5-4.9); POTASSIUM,K 4.4 mmol/L (3.6-5.2)
[2022-10-02 21:40] LABS: ANION GAP 13.4 mmol/L (5.0-14.0)
[2022-10-03] MEDS: Acetaminophen 500 MG Tab PO SCH ×5 (00:40→23:40)
[2022-10-03] MEDS: Dextrose 5%-Lactated Ringers 1,000 ML IV SCH ×2 (02:35→16:21)
[2022-10-03 04:16] LABS: HEMATOCRIT 27.1 % (34.3-46.0); HEMOGLOBIN 8.4 g/dL (11.2-15.5); MEAN CORPUSCULAR HEMOGLOBIN 29.4 pg (31.6-35.5); MEAN CORPUSCULAR VOLUME 94.8 fL (81.4-99.0); RED BLOOD CELL COUNT 2.86 M/uL (3.77-5.24); WHITE BLOOD CELL COUNT,WBC 7.6 K/uL (3.2-11.0)
[2022-10-03 04:35] LABS: A/G RATIO 0.8 (1.2-2.2); ALANINE AMINOTRANSFERASE,ALT 21 U/L (12-78); ALBUMIN 2.3 g/dL (3.4-5.0); ALKALINE PHOSPHATASE 67 U/L (46-116); ASPARTATE AMNIOTRANSFERASE,AST 26 U/L (15-37); BILIRUBIN TOTAL 0.5 mg/dL (0.2-1.0); BLOOD UREA NITROGEN,BUN 13 mg/dL (7-18); CALCIUM 7.8 mg/dL (8.5-10.1); CARBON DIOXIDE,CO2 27 mmol/L (21-32); CHLORIDE,CL 108 mmol/L (100-108); CREATININE 1.1 mg/dL (0.6-1.0); EST CRCL DRUG DOSING (CG) 36.11 mL/min; ESTIMATED GFR 54 mL/min (>60); GLUCOSE RANDOM 114 mg/dL (74-106); MAGNESIUM 1.5 mg/dL (1.8-2.4); PHOSPHORUS 4.2 mg/dL (2.5-4.9); PROTEIN TOTAL,TP 5.2 g/dL (6.4-8.2); SODIUM,NA 141 mmol/L (140-148)
[2022-10-03] MEDS: HYDROmorphone/Normal Saline 6 MG/30 ML PCA Vial IV PRN (06:08)
[2022-10-03] MEDS: Albuterol/Ipratropium 3.0-0.5 MG/3 ML Neb Soln INH SCH ×4 (07:30→20:29)
[2022-10-03] MEDS: Formoterol/Mometasone 100-5 MCG 8.8 GM Inhaler IH SCH ×2 (07:30→20:21)
[2022-10-03] MEDS: Pantoprazole 40 MG Tab.CR PO SCH (07:49)
[2022-10-03] MEDS: Heparin Sodium 5,000 Units/ML Vial SUBCUT SCH ×2 (08:21→20:21)
[2022-10-03] MEDS: Fluconazole 100 MG Tab PO SCH (08:22)
[2022-10-03] MEDS: Erythromycin Base 0.5% Ophth Oint 1 GM Tube EYEBOTH SCH ×2 (08:22→20:22)
[2022-10-03] MEDS: Celecoxib 200 MG Cap PO SCH ×2 (08:22→20:21)
[2022-10-03] MEDS: Clopidogrel 75 MG Tab PO SCH (08:23)
[2022-10-03] MEDS: Propranolol 60 MG Cap.ER PO SCH (08:23)
[2022-10-03] MEDS: Calcitriol 0.25 MCG Cap PO SCH (08:23)
[2022-10-03] MEDS: PARoxetine 20 MG Tab PO SCH (08:23)
[2022-10-03] MEDS: Fluticasone NASAL Spray 16 GM Bottle NASBOTH SCH (08:23)
[2022-10-03] MEDS: Topiramate 25 MG Tab PO SCH ×2 (08:24→20:22)
[2022-10-03] MEDS ORDERED: Cyanocobalamin (Vitamin B12) 1,000 MCG/ML SDV IM ONE (09:00)
[2022-10-03] MEDS ORDERED: Magnesium Sulfate/Water 2 GM in Premix Bag 1 BAG IV SCH (10:00)
[2022-10-03] MEDS ORDERED: Furosemide 20 MG/2 ML VIAL IVPUSH ONE (11:00)
[2022-10-03] MEDS: Magnesium Sulfate/Water 2 GM in Premix Bag 1 BAG IV SCH ×3 (12:20→23:40)
[2022-10-03] MEDS: HYDROmorphone 2 MG Tab PO PRN ×2 (13:14→20:21)
[2022-10-03] MEDS: Tamsulosin 0.4 MG Cap.ER PO SCH (20:22)
[2022-10-04 04:27] LABS: HEMATOCRIT 29.5 % (34.3-46.0); HEMOGLOBIN 9.4 g/dL (11.2-15.5); MEAN CORPUSCULAR HGB CONC 31.9 g/dL (31.6-35.5); RED BLOOD CELL COUNT 3.24 M/uL (3.77-5.24); WHITE BLOOD CELL COUNT,WBC 6.1 K/uL (3.2-11.0)
[2022-10-04] MEDS: HYDROmorphone 2 MG Tab PO PRN ×2 (04:28→11:03)
[2022-10-04] MEDS: Dextrose 5%-Lactated Ringers 1,000 ML IV SCH (04:28)
[2022-10-04 04:42] LABS: A/G RATIO 0.8 (1.2-2.2); ALANINE AMINOTRANSFERASE,ALT 22 U/L (12-78); ALBUMIN 2.2 g/dL (3.4-5.0); ALKALINE PHOSPHATASE 73 U/L (46-116); ANION GAP 7.9 mmol/L (5.0-14.0); ASPARTATE AMNIOTRANSFERASE,AST 25 U/L (15-37); BILIRUBIN TOTAL 0.5 mg/dL (0.2-1.0); BLOOD UREA NITROGEN,BUN 14 mg/dL (7-18); CALCIUM 7.6 mg/dL (8.5-10.1); CARBON DIOXIDE,CO2 28 mmol/L (21-32); CHLORIDE,CL 107 mmol/L (100-108); EST CRCL DRUG DOSING (CG) 39.72 mL/min; ESTIMATED GFR 60 mL/min (>60); GLUCOSE RANDOM 110 mg/dL (74-106); PHOSPHORUS 4.2 mg/dL (2.5-4.9); POTASSIUM,K 3.8 mmol/L (3.6-5.2); SODIUM,NA 143 mmol/L (140-148)
[2022-10-04] MEDS: Magnesium Sulfate/Water 2 GM in Premix Bag 1 BAG IV SCH ×2 (05:37→12:28)
[2022-10-04] MEDS: Formoterol/Mometasone 100-5 MCG 8.8 GM Inhaler IH SCH (07:04)
[2022-10-04] MEDS: Albuterol/Ipratropium 3.0-0.5 MG/3 ML Neb Soln INH SCH ×2 (07:04→10:45)
[2022-10-04] MEDS: Pantoprazole 40 MG Tab.CR PO SCH (07:53)
[2022-10-04] MEDS: Acetaminophen 500 MG Tab PO SCH (07:54)
[2022-10-04] MEDS: Heparin Sodium 5,000 Units/ML Vial SUBCUT SCH (07:54)
[2022-10-04] MEDS: Fluticasone NASAL Spray 16 GM Bottle NASBOTH SCH (08:16)
[2022-10-04] MEDS: Topiramate 25 MG Tab PO SCH (08:16)
[2022-10-04] MEDS: PARoxetine 20 MG Tab PO SCH (08:16)
[2022-10-04] MEDS: Calcitriol 0.25 MCG Cap PO SCH (08:16)
[2022-10-04] MEDS: Clopidogrel 75 MG Tab PO SCH (08:16)
[2022-10-04] MEDS: Celecoxib 200 MG Cap PO SCH (08:17)
[2022-10-04] MEDS: Fluconazole 100 MG Tab PO SCH (08:17)
[2022-10-04] MEDS: Erythromycin Base 0.5% Ophth Oint 1 GM Tube EYEBOTH SCH (08:17)
[2022-10-04] MEDS: Propranolol 60 MG Cap.ER PO SCH (08:18)
== END 2022-10-04 12:45 | disposition home or self-care (01) | DRG 330 ==
LOC: JP.SDS 05:08 → UNDOADMIN 09:15 → JP.MS 09:15 → UNDODISIN 10-04 12:45
PROVIDERS: ADMIT Surgery; ATTEND Surgery
PROC: 0DT80ZZ Resection of Small Intestine, Open Approach (ICD-10-PCS; principal; 2022-10-01)
PROC: 0DBW0ZX Excision of Peritoneum, Open Approach, Diagnostic (ICD-10-PCS; 2022-10-01)
PROC: 0DBA0ZZ Excision of Jejunum, Open Approach (ICD-10-PCS; 2022-10-01)
PROC: 0WUF0JZ Supplement Abdominal Wall with Synthetic Substitute, Open Approach (ICD-10-PCS; 2022-10-01)
PROC: 3E0M05Z Introduction of Adhesion Barrier into Peritoneal Cavity, Open Approach (ICD-10-PCS; 2022-10-01)
DX: K95.89 Other complications of other bariatric procedure (principal); K43.0 Incisional hernia with obstruction, without gangrene; N26.1 Atrophy of kidney (terminal); F32.A Depression, unspecified; D50.9 Iron deficiency anemia, unspecified; J45.30 Mild persistent asthma, uncomplicated; I10 Essential (primary) hypertension; F41.1 Generalized anxiety disorder; E78.5 Hyperlipidemia, unspecified; E66.9 Obesity, unspecified; G25.81 Restless legs syndrome; Z98.890 Other specified postprocedural states; Z79.899 Other long term (current) drug therapy; Z98.41 Cataract extraction status, right eye; Z98.42 Cataract extraction status, left eye; Z98.84 Bariatric surgery status; Z98.51 Tubal ligation status; Z88.8 Allergy status to other drugs, medicaments and biological substances; Z68.28 Body mass index [BMI] 28.0-28.9, adult; Z88.0 Allergy status to penicillin
CPT/HCPCS: 36415; 36430; 51701; 51702; 74240; 74240-26; 80048; 80053; 83735; 83880; 84100; 85025; 85027; 86850; 86900; 86901; 86920; 86922; 88302; 88305; 88307; 94640; A9270-GY; C1713; C1781; C9113; J0131; J0171; J1100; J1170; J1642; J1644; J1940; J2020; J2185; J2405; J2704; J2795; J3010; J3410; J3411; J3420; J3475; J3490; J7120; J7121; J7620; P9016; Q9967

== ENCOUNTER 2023-01-17 06:04 | Day surgery (SDC) | payer MEDICARE, BC ==
[2023-01-17] MEDS ORDERED: fentaNYL 50 MCG/ML SDV ONE (06:52)
[2023-01-17] MEDS ORDERED: Propofol 200 MG/20 ML SDV ONE ×2 (06:52→08:18)
[2023-01-17] MEDS ORDERED: Albuterol/Ipratropium 3.0-0.5 MG/3 ML Neb Soln NEB ONE (07:00)
[2023-01-17] MEDS ORDERED: Dextrose 5%-Lactated Ringers 1,000 ML IV SCH (07:00)
== END 2023-01-17 11:35 | disposition home or self-care (01) ==
LOC: JP.SDS 06:04
PROVIDERS: ATTEND Surgery
DX: K62.3 Rectal prolapse (principal); R19.5 Other fecal abnormalities; K64.9 Unspecified hemorrhoids; J45.909 Unspecified asthma, uncomplicated; I10 Essential (primary) hypertension; F32.A Depression, unspecified; F41.9 Anxiety disorder, unspecified
CPT/HCPCS: 45378; J2704; J3010; J7121; J7620

== ENCOUNTER 2023-01-21 07:58 | Day surgery (SDC) | payer MEDICARE, BC ==
[~2023-01-21 07:58] MED LIST: Bupivacaine 0.5%/EPINEPHrine 1:200,000 50 ML MDV ONE
[2023-01-21] MEDS ORDERED: Dextrose 5%-Lactated Ringers 1,000 ML IV SCH (09:00)
[2023-01-21] MEDS ORDERED: Neomycin/Polymyxin B 1 ML, Sodium Chloride 0.9% 750 ML ONE ×2 (09:00)
[2023-01-21] MEDS ORDERED: fentaNYL 250 MCG/5 ML SDV ONE (09:26)
[2023-01-21] MEDS ORDERED: Glycopyrrolate 0.2 MG/ML 5 ML MDV ONE (09:26)
[2023-01-21] MEDS ORDERED: Propofol 200 MG/20 ML SDV ONE (09:26)
[2023-01-21] MEDS ORDERED: Rocuronium 50 MG/5 ML Vial ONE (09:26)
[2023-01-21] MEDS ORDERED: Dexamethasone 4 MG/ML SDV ONE (09:26)
[2023-01-21] MEDS ORDERED: Succinylcholine 200 MG/10 ML MDV ONE (09:26)
[2023-01-21] MEDS ORDERED: Neostigmine Methylsulfate 1 MG/ML 5 ML Syringe ONE (09:26)
[2023-01-21] MEDS ORDERED: Ondansetron 4 MG/2 ML SDV ONE (09:26)
[2023-01-21] MEDS ORDERED: Ropivacaine 30 ML, dexAMETHasone 8 MG, EPINEPHrine 0.4 MG, Sodium Chloride 0.9% 47.6 ML NERVRT SCH ×4 (09:30)
[2023-01-21] MEDS ORDERED: Albuterol/Ipratropium 3.0-0.5 MG/3 ML Neb Soln NEB ONE (09:30)
[2023-01-21] MEDS ORDERED: Meropenem 500 MG in Sodium Chloride 0.9% 50 ML IV ONE (09:45)
[2023-01-21] MEDS ORDERED: HYDROmorphone 1 MG/ML Syringe IV PRN (13:46)
[2023-01-21] MEDS ORDERED: HYDROmorphone 0.5 MG/0.5 ML Syringe IVPUSH PRN (13:46)
[2023-01-21] MEDS ORDERED: Ondansetron 4 MG/2 ML SDV IVPUSH PRN (14:02)
[2023-01-21] MEDS ORDERED: Hypromellose 0.3% Ophth Soln 15 ML Bottle EYEBOTH PRN (14:05)
[2023-01-21] MEDS ORDERED: ClonazePAM 1 MG Tab PO PRN (14:17)
[2023-01-21] MEDS: HYDROmorphone 2 MG Tab PO PRN ×2 (14:42→20:21)
[2023-01-21] MEDS: Albuterol/Ipratropium 3.0-0.5 MG/3 ML Neb Soln INH SCH ×2 (14:48→20:30)
[2023-01-21] MEDS: Meropenem 500 MG in Sodium Chloride 0.9% 50 ML IV SCH ×2 (16:12→21:29)
[2023-01-21] MEDS: Acetaminophen 325 MG Tab PO SCH ×2 (17:16→23:21)
[2023-01-21] MEDS: Cetirizine 10 MG Tab PO SCH (20:23)
[2023-01-21] MEDS: Docusate Sodium 100 MG Cap PO SCH (20:23)
[2023-01-21] MEDS: Formoterol/Mometasone 200-5 MCG 8.8 GM Inhaler IH SCH (20:29)
[2023-01-21] MEDS: hydrOXYzine HCl 25 MG Tab PO PRN (20:36)
[2023-01-21] MEDS ORDERED: Fluticasone NASAL Spray 16 GM Bottle NASBOTH SCH (21:00)
[2023-01-21] MEDS ORDERED: atorvaSTATin 10 MG Tab PO SCH (21:00)
[2023-01-22] MEDS: HYDROmorphone 2 MG Tab PO PRN ×5 (00:41→17:10)
[2023-01-22] MEDS: Meropenem 500 MG in Sodium Chloride 0.9% 50 ML IV SCH ×2 (05:01→09:55)
[2023-01-22] MEDS: Acetaminophen 325 MG Tab PO SCH ×3 (05:02→17:10)
[2023-01-22] MEDS: Albuterol/Ipratropium 3.0-0.5 MG/3 ML Neb Soln INH SCH ×2 (07:07→10:53)
[2023-01-22] MEDS ORDERED: Magnesium Hydroxide 400 MG/5 ML Susp 30 ML Cup PO PRN (07:42)
[2023-01-22] MEDS: Formoterol/Mometasone 200-5 MCG 8.8 GM Inhaler IH SCH (08:05)
[2023-01-22] MEDS: Docusate Sodium 100 MG Cap PO SCH (08:12)
[2023-01-22] MEDS: Cetirizine 10 MG Tab PO SCH (08:13)
[2023-01-22] MEDS ORDERED: Levofloxacin 250 MG Tab PO SCH ×2 (09:00→12:00)
[2023-01-22] MEDS ORDERED: Desvenlafaxine Succinate 25 MG TAB.ER PO SCH (09:00)
[2023-01-22] MEDS ORDERED: Propranolol 60 MG Cap.ER PO SCH (09:00)
[2023-01-22] MEDS ORDERED: Docusate Sodium 100 MG Cap PO SCH (09:00)
[2023-01-22] MEDS ORDERED: Clopidogrel 75 MG Tab PO SCH (09:00)
[2023-01-22] MEDS: hydrOXYzine HCl 25 MG Tab PO PRN (12:24)
== END 2023-01-22 17:38 | disposition home or self-care (01) ==
LOC: JP.SDSSCHI 07:58 → JP.SDS 07:58 → UNDOADMIN 07:58 → JP.MS 11:45 → JP.SDSSCHI 11:45 → EDSTATUS 12:00 → UNDODISIN 01-22 17:38 → JP.SDS 01-22 17:38
PROVIDERS: ATTEND Surgery
DX: K62.3 Rectal prolapse (principal); K64.4 Residual hemorrhoidal skin tags; J45.909 Unspecified asthma, uncomplicated; N18.9 Chronic kidney disease, unspecified; K59.00 Constipation, unspecified; F32.A Depression, unspecified; D50.9 Iron deficiency anemia, unspecified; Z86.73 Personal history of transient ischemic attack (TIA), and cerebral infarction without residual deficits; Z79.02 Long term (current) use of antithrombotics/antiplatelets; Z88.1 Allergy status to other antibiotic agents; Z88.8 Allergy status to other drugs, medicaments and biological substances
CPT/HCPCS: 45541; 94640; A9270; J0131; J0330; J1100; J2185; J2405; J2704; J2710; J3010; J3490; J7121; J7620

== ENCOUNTER 2023-01-26 11:10 | Emergency (ER) | payer MEDICARE, BC ==
[2023-01-26 11:25] LABS: APPEARANCE,URINE TURBID (CLEAR); COLOR,URINE ORANGE (YELLOW)
[2023-01-26 11:32] LABS: AMORPHOUS SEDIMENT,URINE NOT SEEN; BACTERIA,URINE FEW; EPITHELIAL CELLS,URINE FEW; MUCUS,URINE MODERATE; RBC,URINE 50-75 (0-5)
[2023-01-26] MEDS ORDERED: Sodium Chloride 0.9% 1,000 ML IV ONE (12:14)
[2023-01-26 12:29] LABS: BASOPHILS ABSOLUTE AUTO 0.04 K/uL (0.00-0.10); BASOPHILS PERCENT AUTO 0.5 % (0.1-1.3); EOSINOPHILS ABSOLUTE AUTO 0.13 K/uL (0.00-0.40); EOSINOPHILS PERCENT AUTO 1.8 % (0.0-5.4); HEMATOCRIT 37.6 % (34.3-46.0); HEMOGLOBIN 11.6 g/dL (11.2-15.5); IMMATURE GRAN ABSOLUTE AUTO 0.02 K/uL (0.00-0.23); IMMATURE GRAN PERCENT AUTO 0.3 % (0.0-0.7); LYMPHOCYTES ABSOLUTE AUTO 2.42 K/uL (0.8-3.3); LYMPHOCYTES PERCENT AUTO 32.7 % (11.4-47.7); MEAN CORPUSCULAR HEMOGLOBIN 29.2 pg (31.6-35.5); MEAN CORPUSCULAR HGB CONC 30.9 g/dL (31.6-35.5); MEAN CORPUSCULAR VOLUME 94.7 fL (81.4-99.0); MONOCYTES ABSOLUTE AUTO 0.59 K/uL (0.20-0.90); NEUTROPHILS ABSOLUTE AUTO 4.21 K/uL (1.0-7.6); NEUTROPHILS PERCENT AUTO 56.7 % (40.0-78.1); PLATELET COUNT,PLT 237 K/uL (130-375); RED BLOOD CELL COUNT 3.97 M/uL (3.77-5.24); WHITE BLOOD CELL COUNT,WBC 7.4 K/uL (3.2-11.0)
[2023-01-26 12:54] LABS: A/G RATIO 1.1 (1.2-2.2); ALANINE AMINOTRANSFERASE,ALT 12 U/L (12-78); ALBUMIN 3.2 g/dL (3.4-5.0); ALKALINE PHOSPHATASE 88 U/L (46-116); ANION GAP 10.8 mmol/L (5.0-14.0); ASPARTATE AMNIOTRANSFERASE,AST 19 U/L (15-37); BILIRUBIN TOTAL 0.5 mg/dL (0.2-1.0); BLOOD UREA NITROGEN,BUN 21 mg/dL (7-18); CALCIUM 8.4 mg/dL (8.5-10.1); CARBON DIOXIDE,CO2 24 mmol/L (21-32); CHLORIDE,CL 108 mmol/L (100-108); EST CRCL DRUG DOSING (CG) 39.87 mL/min; ESTIMATED GFR 60 mL/min (>60); GLUCOSE RANDOM 104 mg/dL (74-106); PROTEIN TOTAL,TP 6.1 g/dL (6.4-8.2); SODIUM,NA 143 mmol/L (140-148)
== END 2023-01-26 14:13 | disposition home or self-care (01) ==
LOC: JP.ED 11:10
DX: R63.0 Anorexia (principal); R11.0 Nausea; I10 Essential (primary) hypertension; Z79.899 Other long term (current) drug therapy
CPT/HCPCS: 36415; 80053; 81001; 83605; 85025; 87086; 96360; 99285; J7030